=== PATIENT | male | born 1955 | race Caucasian/White ===

== ENCOUNTER → 2017-11-07 09:57 | Day surgery (SDC) | payer MEDICARE, SELFPAY ==
[2017-11-07 11:03] VITALS: BP 119/71; PULSE 67; RESP 18; TEMP 36.6; O2SAT 95
== END ==
PROVIDERS: PCP Physician Assistant; Visit Provider Surgery

== ENCOUNTER → 2018-08-22 13:29 | Outpatient (CLI) | payer MEDICARE, SELFPAY | PROVIDERS: PCP Nurse Practitioner Family; Visit Provider Nurse Practitioner Family | DX: R00.0 Tachycardia, unspecified (principal); R53.83 Other fatigue; I10 Essential (primary) hypertension; Z01.818 Encounter for other preprocedural examination ==

== ENCOUNTER → 2018-08-30 07:06 | Outpatient (CLI) | payer MEDICARE, SELFPAY ==
--- NOTE | 2018-08-30 07:43 | XR_ITS ---
XR chest AP HISTORY: ITS.REASON: preop ORDERING PHYSICIAN: ZEKE Avila PATIENT AGE: 63 years COMPARISON: None available FINDINGS: The cardiomediastinal silhouette and pulmonary vascularity are within normal limits. The lungs are clear without infiltrates, suspicious nodules, or pleural effusions. No acute bony abnormalities. IMPRESSION: Negative chest, no acute finding
--- NOTE | 2018-08-30 07:44 | NM_ITS ---
History and Indications: Coronary artery disease, previous [place], hypertension, hyperlipidemia, tobacco use, preop cardiovascular risk assessment. Procedure: Patient received a 0.4 mg of intravenous Lexiscan, resting heart rate was 62 bpm resting blood pressure 153/83, with Lexiscan maximum heart rate achieved was 84 bpm is less than 85% of the maximum predicted heart rate and a blood pressure was 150/61. With Lexiscan patient complained of shortness of breath. Electrocardiogram: Resting electrocardiogram showed sinus rhythm, inferior and lateral ST-T wave changes consider subendocardial ischemia, with Lexiscan less than 1.[address] segment depression noted from the baseline EKG. The EKG portion of the Lexiscan Myoview is nondiagnostic. Cardiac stress and resting SPECT images: Cardiac stress and resting SPECT images were obtained using technetium 99 Myoview 31.5 mCi stress and 10.9 mCi at rest. Gated SPECT further analysis of segmental wall motion and calculation of the ejection fraction also done. Cardiac stress and rest SPECT images show moderate to large size area of severely reduced tracer activity involving the anterolateral, lateral and inferolateral wall abnormality improves on the resting images suggestive of extensive myocardial scarring with minimal michael-infarct ischemia. Computer derived ejection fraction is 42% with moderate lateral and inferolateral wall hypokinesis, right ventricle is normal size and contractility. Conclusion: 1. The EKG portion of the Lexiscan Myoview is nondiagnostic. 2. Scintigraphic evidence of myocardial scarring involving the anterolateral, lateral and inferolateral wall with minimal michael-infarct ischemia. Computer derived ejection fraction is 42% with multiple segmental wall motion abnormality described above, right ventricle is normal size and contractility. 3. Abnormal Lexiscan Myoview study.
[2018-08-30 09:28] LABS: Alanine Aminotransferase 41 U/L (12-78); Albumin Level 3.6 gm/dL (3.4-5.0); Albumin/Globulin Ratio 1.3 (1.1-1.8); Alkaline Phosphatase 102 U/L (46-116); Anion Gap 10.5 mEq/L (5-15); Aspartate Amino Transferase 24 U/L (15-37); Bilirubin,Total 0.4 mg/dL (0.2-1.0); Blood Urea Nitrogen 19 mg/dL (7-18); Calcium 8.8 mg/dL (8.5-10.1); Carbon Dioxide 29 mmol/L (21.0-32.0); Chloride 107 mmol/L (98-107); Chol/HDL Ratio 2.8 (1-3.5); Cholesterol 96 mg/dL (140-200); Creatinine,Serum 1.07 mg/dL (0.70-1.30); Estimated Glomerular Filt Rate 69 ml/min (>60); GFR (African American) 84 ML/MIN (>60); Globulin 2.7 gm/dl (1.3-3.2); Glucose 79 mg/dL (74-106); HDL Cholesterol 34 mg/dL (27-67); LDL Cholesterol 49 mg/dL (0-130); Potassium 4.5 mmoL/L (3.5-5.1); Sodium 142 mmol/L (136-145); Thyroid Stimulating Hormone 3.43 uIU/ml (0.358-3.740); Total Protein,Serum 6.3 gm/dL (6.4-8.2); Triglycerides 64 mg/dL (30-200); VLDL Cholesterol 13 mg/dL (0-40)
--- NOTE | 2018-08-30 09:41 | HMH.ITSHM ---
Current Home Medications as stated by this patient Juma Hoffman or medical collections representative. []metoprolol lisinopril lipitor asa
== END ==
PROVIDERS: PCP Nurse Practitioner Family; Visit Provider Physician Assistant
DX: Z01.818 Encounter for other preprocedural examination (principal); I25.10 Atherosclerotic heart disease of native coronary artery without angina pectoris; I10 Essential (primary) hypertension
CPT/HCPCS: 36415; 71045; 78452; 80053; 80061; 84443; 93017; A9502; J2785

== ENCOUNTER → 2021-08-10 16:44 | Outpatient (CLI) | payer MEDICARE, SELFPAY ==
--- NOTE | 2021-08-10 16:46 | CA_ITS ---
APPROVED REPORT Left Lower Extremity Venous Study for DVT. Swing Frame Grinder Operator: REYNALDO Indications Lower Extremity Pain: Left Lower Extremity Edema: Left Left leg edema off and on for a little while. Left hip pain that started last night. Denies trauma. Medications Plavix Patient states he used to take Plavix but it was stopped around a year ago. Vein Imaging CFV (L): compressive, spontaneous, phasic, augmentation FEM (L): compressive, spontaneous, phasic, augmentation POP (L): compressive, spontaneous, phasic, augmentation PTV (L): Compressible GSV (L): compressive, spontaneous, phasic, augmentation Peroneals (L):Compressible GAS (L): Compressible Findings No evidence of DVT or superficial thrombophlebitis in the veins scanned of the left lower extremity. Conclusion No evidence of DVT or superficial thrombophlebitis in the veins scanned of the left lower extremity. Electronically signed by : Alok Gonzalez MD 08/16/2021 08:36:45
== END ==
PROVIDERS: PCP Physician Assistant; Visit Provider Nurse Practitioner Family
DX: M79.89 Other specified soft tissue disorders (principal)
CPT/HCPCS: 93971

== ENCOUNTER → 2021-08-25 18:18 | Outpatient (CLI) | payer MEDICARE, SELFPAY ==
[2021-08-25 19:02] LABS: Basophils # 0.1 K/mm3 (0-0.2); Basophils % 0.7 % (0.1-2.0); Eosinophils # 0.4 K/mm3 (0.0-0.4); Eosinophils % 3.4 % (0.1-12.0); Hematocrit 44.4 % (42.0-52.0); Lymphocytes # 2.4 K/mm3 (0.7-4.5); Lymphocytes % 21.8 % (10-50); Mean Corpuscular HGB Conc 33.7 g/dL (31.8-35.4); Mean Corpuscular Hemoglobin 30.6 pg (27.0-31.2); Mean Corpuscular Volume 90.9 fl (80-94); Mean Platelet Volume 9.4 fl (7.4-10.4); Monocytes # 0.9 K/mm3 (0.1-1.0); Monocytes % 7.8 % (1.7-9.3); Neutrophils # 7.3 K/mm3 (1.8-7.8); Neutrophils % 66.3 % (37.0-80.0); Platelet Count 209 K/mm3 (142-424); Red Blood Count 4.89 M/mm3 (4.60-6.20); Red Cell Distribution Width 14.5 % (11.5-17.5)
[2021-08-25 19:06] LABS: Alanine Aminotransferase 24 U/L (12-78); Albumin Level 3.7 g/dl (3.5-5.0); Albumin/Globulin Ratio 1.4 (1.1-1.8); Alkaline Phosphatase 87 U/L (38-126); Aspartate Amino Transferase 33 U/L (17-59); Bilirubin,Total 0.3 mg/dl (0.2-1.3); Blood Urea Nitrogen 16 mg/dl (9-20); Carbon Dioxide 24 mmol/L (22.0-30.0); Chloride 106 mmol/L (98-107); Chol/HDL Ratio 3.6 (1-3.5); Cholesterol 121 mg/dl (140-200); Estimated Glomerular Filt Rate 84 ml/min (>60); GFR (African American) 102 ML/MIN (>60); Globulin 2.7 g/dL (1.3-3.2); Glucose 90 mg/dl (74-100); HDL Cholesterol 34 mg/dl (40-60); Sodium 139 mmol/L (136-145); Total Protein,Serum 6.4 g/dl (6.3-8.2); Triglycerides 86 mg/dl (30-150); VLDL Cholesterol 17 mg/dL (0-40)
[2021-08-25 19:17] LABS: C-Reactive Protein 6.4 mg/L (0-4); Direct LDL Cholesterol 66.89 mg/dL (100-129)
[2021-08-25 19:23] LABS: T4 (Thyroxine) 9.6 ug/dl (5.53-11.0)
[2021-08-25 19:24] LABS: 25-OH Vitamin D, Total 86.4 ng/mL (30-100)
[2021-08-25 19:26] LABS: Erythrocyte Sedimentation Rate 16 mm/hr (0-20)
[2021-08-25 19:37] LABS: Prostate Specific Ag Screen 3.6 ng/ml (0.0-4.0); Thyroid Stimulating Hormone 0.92 uIU/mL (0.465-4.68)
== END ==
PROVIDERS: Visit Provider Physician Assistant
DX: R52 Pain, unspecified (principal); R53.83 Other fatigue; E78.5 Hyperlipidemia, unspecified; H66.92 Otitis media, unspecified, left ear; Z12.5 Encounter for screening for malignant neoplasm of prostate; E55.9 Vitamin D deficiency, unspecified
CPT/HCPCS: 80053; 80061; 82306; 84436; 84443; 85025; 85651; 86140; G0103

== ENCOUNTER → 2021-08-28 12:28 | Outpatient (CLI) | payer MEDICARE, SELFPAY ==
--- NOTE | 2021-08-28 12:29 | XR_ITS ---
PROCEDURE INFORMATION: Exam: XR Left Hip Exam date and time: 08/28/2021 12:29 PM Age: 66 years old Clinical indication: Hip pain; Left hip; Additional info: Left hip pain/ radiates into buttocks -- no injury TECHNIQUE: Imaging protocol: XR Left hip. Views: 2 or 3 views hip with pelvis when performed. COMPARISON: No relevant prior studies available. FINDINGS: Bones/joints: Unremarkable left hip. No acute fracture. Postoperative change in the lumbosacral spine. Soft tissues: Unremarkable. IMPRESSION: No acute findings.
== END ==
PROVIDERS: PCP Physician Assistant; Visit Provider Physician Assistant
DX: M25.552 Pain in left hip (principal)
CPT/HCPCS: 73502

== ENCOUNTER → 2021-09-14 15:39 | Outpatient (CLI) | payer MEDICARE, SELFPAY ==
[2021-09-14 16:08] LABS: Chloride 106 mmol/L (98-107); Sodium 138 mmol/L (136-145)
[2021-09-14 16:11] LABS: Blood Urea Nitrogen 11 mg/dl (9-20); Carbon Dioxide 25 mmol/L (22.0-30.0); Estimated Glomerular Filt Rate 84 ml/min (>60); GFR (African American) 102 ML/MIN (>60)
[2021-09-14 16:12] LABS: Calcium 8.8 mg/dl (8.4-10.2); Glucose 127 mg/dl (74-100)
== END ==
PROVIDERS: Visit Provider Physician Assistant
DX: Z01.818 Encounter for other preprocedural examination (principal)
CPT/HCPCS: 36415; 80048

== ENCOUNTER → 2021-09-16 10:30 | Outpatient (CLI) | payer MEDICARE, SELFPAY ==
--- NOTE | 2021-09-16 10:30 | CT_ITS ---
PROCEDURE INFORMATION: Exam: CTA Angiogram of the Abdominal Aorta and Bilateral Lower Extremities (Run-off) With IV Contrast Exam date and time: 09/16/2021 10:30 AM Age: 66 years old Clinical indication: Other: Edema lle; Additional info: Lle edema TECHNIQUE: Imaging protocol: CT angiogram of the abdominal aorta, pelvis and bilateral lower extremities with IV iodinated contrast. 3D rendering (Not supervised by radiologist): MIP and/or 3D reconstructed images were created by the technologist. Radiation optimization: All CT scans at this facility use at least one of these dose optimization techniques: automated exposure control; mA and/or kV adjustment per patient size (includes targeted exams where dose is matched to clinical indication); or iterative reconstruction. Contrast material: ISOVUE 370; Contrast volume: 120 ml; Contrast route: INTRAVENOUS (IV); COMPARISON: CA VENOUS DOPPLER LE LT 08/10/2021 4:53 PM FINDINGS: Aorta: The vasculature demonstrates diffuse mild atherosclerotic calcification. Celiac trunk and mesenteric arteries: No occlusion or significant stenosis. Renal arteries: No occlusion or significant stenosis. Right iliac arteries: No occlusion or significant stenosis. Right femoral/popliteal arteries: No arterial stenosis or occlusion. Right infrapopliteal arteries: No occlusion or significant stenosis. Left iliac arteries: No occlusion or significant stenosis. Left femoral/popliteal arteries: No occlusion or significant stenosis. Left infrapopliteal arteries: No occlusion or significant stenosis. Bladder: Unremarkable. No mass. Reproductive: The prostate demonstrates mild nonspecific enlargement. The seminal vesicles are normal. The prostate gland demonstrates nonspecific parenchymal calcifications. Intraperitoneal space: Unremarkable. No free air. No significant fluid collection. Lymph nodes: No lymphadenopathy. Bones/joints: No acute fracture. No dislocation. Soft tissues: Bilateral fat filled inguinal hernias. Mild soft tissue edematous changes of the left lower extremity. IMPRESSION: 1. No arterial stenosis or occlusion. 2. Bilateral fat filled inguinal hernias. 3. Mild soft tissue edematous changes of the left lower extremity.
== END ==
PROVIDERS: PCP Physician Assistant; Visit Provider Physician Assistant
DX: I25.10 Atherosclerotic heart disease of native coronary artery without angina pectoris (principal); R09.89 Other specified symptoms and signs involving the circulatory and respiratory systems; R60.0 Localized edema
CPT/HCPCS: 75635; Q9967

== ENCOUNTER → 2021-11-27 14:59 | Outpatient (CLI) | payer OTHER, MEDICARE, SELFPAY | PROVIDERS: PCP Physician Assistant; Visit Provider Emergency Medicine | DX: U07.1 COVID-19 (principal) | CPT/HCPCS: C9803; U0003; U0005 ==

== ENCOUNTER 2022-05-27 14:45 | Emergency (ER) | payer OTHER, MEDICARE, SELFPAY ==
[2022-05-27 15:10] VITALS: BP 126/72; PULSE 66; RESP 19; TEMP 36.7; O2SAT 96; BMI 31.7
--- NOTE | 2022-05-27 15:32 | HMH.EDUTC ---
[facility] [place] Clinical Impression: Bronchitis Disposition: Home, Self-Care Condition on Discharge: Good Instructions: DI for Acute Bronchitis Additional Instructions: Start antibiotic today. Be sure to complete entire prescription even if feeling better Tylenol and ibuprofen as needed for pain or fever Humidifier/vaporizer/hot steamy shower Follow-up with primary care tomorrow. Follow-up immediately in the ER of the [facility] for new or worsening symptoms or no noticeable improvement over the next 48-72 hours. Stop smoking Prescriptions: Amoxicillin [Amoxicillin 500mg Tab] 500 mg PO BID 10 Days #20 tab Transmission Status: Pending to [id number] Referrals: Margarita Goins PA [Primary Care Provider] - Time of Disposition: 15:39 Medical Decision Making - [place] Inquiry Pt receiving controlled substance: No Vital Signs: 05/27/22 15:10 Temperature 98.1 F Temperature Source Oral Pulse Rate [Right Brachial] 66 Respiratory Rate 19 Blood Pressure [Right Arm] 126/72 Blood Pressure Mean [Right Arm] 90 Blood Pressure Source [Right Arm] Automatic Cuff Blood Pressure Position [Right Arm] Sitting 02 Sat by Pulse Oximetry 96 Oxygen Delivery Method Room Air [facility] [place] - General Chief complaint: Urgent Treatment Center Stated complaint: SORE THROAT-COUGHING UP GREEN STUFF Time Seen by Provider: 05/27/22 15:32 Mode of Arrival: Ambulatory Source of Information: Patient Limitations: No Limitations Description of Symptoms (Recalled from Triage Doc. by RN): PATIENT C/O COUGH UP DARK MUCOUS X 3 DAYS HEENT Symptoms (Recalled from RN notes): No Resp Symptoms (Recalled from RN notes): Yes Skin Symptoms (Recalled from RN notes): No MS Symptoms (Recalled from RN notes): No Functional Status (Recalled from RN notes): WNL - History of Present Illness Provider Complaint: 66 yr old male presnts for sore throat and coughing up thick green mucus since last night. - Related Data Home Medications Medication Instructions Recorded Confirmed aspirin 81 mg tablet,delayed 81 mg PO DAILY 08/22/18 08/25/21 release clopidogrel 75 mg tablet PO 90 Days #90 tab 02/03/19 08/25/21 hydrochlorothiazide 12.5 mg capsule PO 90 Days #90 cap 02/03/19 08/25/21 Previous Rx's Medication Instructions Recorded metoprolol succinate 25 mg 25 mg PO DAILY #90 tab 07/31/18 tablet,extended release 24 hr fluticasone propionate 50 1 spray INTRANASAL QDAY 30 Days 02/03/19 mcg/actuation nasal #9.9 g spray,suspension montelukast 10 mg tablet 10 mg PO QPM #30 tab 02/03/19 naproxen 500 mg tablet 500 mg PO BID #30 tab 08/10/21 lisinopril 5 mg tablet See Rx Instructions .ROUTE 01/02/22 .COMPLEX #180 tab atorvastatin 40 mg tablet See Rx Instructions .ROUTE 04/18/22 .COMPLEX #90 tab Amoxicillin [Amoxicillin 500mg Tab] 500 mg PO BID 10 Days #20 tab 05/27/22 Allergies Allergy/AdvReac Type Severity Reaction Status Date / Time azithromycin [AZITHROMYCIN] Allergy Unknown Verified 08/25/21 14:59 diphenhydramine Allergy Unknown Verified 08/25/21 14:59 [From BENADRYL] - Worker's Comp Is this a Worker's Comp case?: No [facility] History - Hepatitis A Screen Attestation statement:: This patient has been screened for Hepatitis A risk factors. I have reviewed the patient's past medical history: Yes Medical History: Reports:: Hyperlipidemia, Hypertension, Myocardial Infarction Denies:: Diabetes Mellitus Type 1, Diabetes Mellitus Type 2, Lung Disease, Seizures Other Medical History: Reports: Arthritis Other Surgeries: Yes: Cardiac Catheterization, Cardiac Surgery, Coronary Stent, Other Amputation: No Fractures: No Comment: Back x3, Cardiac Stents x2 - Social History Smoking Status: Former smoker Tobacco Type: cigarettes # Packs/Day (cigarettes): 1 Alcohol Intake: never Alcohol Intake Frequency:: other Substance Use Type: denies use Occupational Status: disabled Family Hx:: No significant family history ROS [place]
[2022-05-27 15:41] VITALS: BP 126/72; PULSE 66; RESP 19; TEMP 36.7; O2SAT 96
== END 2022-05-27 15:53 | disposition home or self-care (01) ==
PROVIDERS: Emergency Provider Nurse Practitioner Family; PCP Physician Assistant
DX: J40 Bronchitis, not specified as acute or chronic (principal); R09.3 Abnormal sputum; R05.9 Cough, unspecified; E78.5 Hyperlipidemia, unspecified; I10 Essential (primary) hypertension; I25.2 Old myocardial infarction; Z87.891 Personal history of nicotine dependence
CPT/HCPCS: 99212; C9803; G0463; U0003; U0005

== ENCOUNTER 2022-07-29 13:59 | Emergency (ER) | payer OTHER, MEDICARE, SELFPAY ==
--- NOTE | 2022-07-29 14:13 | XR_ITS ---
PROCEDURE INFORMATION: Exam: XR Chest Exam date and time: 07/29/2022 2:08 PM Age: 67 years old Clinical indication: Cough TECHNIQUE: Imaging protocol: Radiologic exam of the chest. Views: 2 views. COMPARISON: CR CXR2 XR chest AP 08/30/2018 9:51 AM FINDINGS: Lungs: Atelectatic changes noted within both lung bases. No focal pneumonia or pneumothorax. Bilateral hyperinflation is present. Pleural spaces: There are no pleural effusions present. Heart/Mediastinum: Unremarkable. No cardiomegaly. Bones/joints: Unremarkable. IMPRESSION: 1. Atelectatic changes noted within both lung bases. 2. No focal pneumonia or pneumothorax. 3. Bilateral hyperinflation is present.
[2022-07-29 14:17] VITALS: BP 156/83; PULSE 82; RESP 16; TEMP 36.8; O2SAT 95; BMI 32.1
--- NOTE | 2022-07-29 14:22 | EXP.UTC ---
Discharge Plan Disposition Patient Disposition: Home, Self-Care Condition: Good Prescriptions Prescriptions: New benzonatate [benzonatate] 100 mg capsule 100 mg PO TIDP PRN (Reason: Cough) Qty: 30 0RF methylprednisolone 4 mg Tablets,Dose Pack 4 mg PO DIRECTED Qty: 21 0RF cefdinir 300 mg capsule 300 mg PO BID Qty: 20 0RF promethazine-DM 6.25-15 mg/5 mL Syrup 5 ml PO Q6H PRN (Reason: Cough) Qty: 240 0RF No Action aspirin [Adult Low Dose Aspirin] 81 mg tablet,delayed release (DR/EC) 81 mg PO DAILY atorvastatin 40 mg tablet See Rx Instructions .ROUTE .COMPLEX Rx Instructions: TAKE 1 TABLET BY MOUTH AT BEDTIME. NEEDS APPT. lisinopril 5 mg tablet See Rx Instructions .ROUTE .COMPLEX Rx Instructions: Take 1 tablet by mouth twice daily metoprolol succinate [Toprol XL] 25 mg tablet extended release 24 hr 25 mg PO DAILY Referrals Follow up/Referrals: Margarita Goins PA [Primary Care Provider] - See instructions Activity Restrictions/Add. Instructions Additional Instructions/Restrictions: Drink plenty of fluids. Take tylenol or ibuprofen for pain or fever. Take the medications as directed. Follow up with your regular doctor. GO TO THE ER FOR ANY WORSENING SYMPTOMS Don't start the oral steroids until tomorrow, since you had the shot here today. The cough medication (promethazine dm) will make you drowsy, so don't drive or operate heavy machinery after taking it. Clinical Impressions Clinical Impression: Bronchitis Instructions Patient Instructions: DI for Acute Bronchitis, Coronavirus Disease 2019, Preventing the Spread of Coronavirus Discharge Instructions Discharge ED Provider: Sean Ortega [facility] [place] General Stated complaint: cough head congestion Mode of Arrival: Ambulatory Source of Information: Patient Limitations: No Limitations Time Seen by Provider: 07/29/22 14:21 Description of Symptoms (Recalled from Triage Doc. by RN): pt comes in with c/o cough and congestion that began last night. HEENT Symptoms (Recalled from RN notes): Yes Resp Symptoms (Recalled from RN notes): Yes Skin Symptoms (Recalled from RN notes): No MS Symptoms (Recalled from RN notes): No Functional Status (Recalled from RN notes): n/a History of Present Illness Provider Complaint: He is here with c/o cough and chest congestion that started yesterday. Related Data Home Medications Medication Instructions Recorded Confirmed aspirin 81 mg tablet,delayed 81 mg PO DAILY Blood thinner 08/22/18 07/29/22 release (Adult Low Dose Aspirin) atorvastatin 40 mg tablet See Rx Instructions .Route 07/29/22 07/29/22 .COMPLEX Cholesterol lisinopril 5 mg tablet See Rx Instructions .Route 07/29/22 07/29/22 .COMPLEX High blood pressure metoprolol succinate 25 mg 25 mg PO DAILY High blood pressure 07/29/22 07/29/22 tablet,extended release 24 hr (Toprol XL) Previous Rx's Medication Instructions Recorded benzonatate 100 mg capsule 100 mg PO TIDP PRN Cough #30 caps 07/29/22 cefdinir 300 mg capsule 300 mg PO BID #20 caps 07/29/22 methylprednisolone 4 mg tablets in 4 mg PO DIRECTED #21 tabs 07/29/22 a dose pack promethazine-DM 6.25 mg-15 mg/5 mL 5 ml PO Q6H PRN Cough #240 mL 07/29/22 oral syrup Allergies Allergy/AdvReac Type Severity Reaction Status Date / Time azithromycin [AZITHROMYCIN] Allergy Unknown Verified 07/29/22 14:20 diphenhydramine Allergy Unknown Verified 07/29/22 14:20 [From BENADRYL] Worker's Comp Is this a Worker's Comp case?: No [facility] Medical History CAD (coronary artery disease) Left otitis media Social History Smoking Status: Former smoker alcohol intake: never substance use type: denies use current occupational status: disabled Travel in the last 8 weeks: None caffeine: No
[2022-07-29 15:38] VITALS: BP 156/83; PULSE 82; RESP 16; TEMP 36.8
== END 2022-07-29 15:38 | disposition home or self-care (01) ==
PROVIDERS: Emergency Provider Nurse Practitioner Family; PCP Physician Assistant
DX: H66.92 Otitis media, unspecified, left ear (principal); R05.9 Cough, unspecified; I25.10 Atherosclerotic heart disease of native coronary artery without angina pectoris; Z20.822 Contact with and (suspected) exposure to COVID-19; Z79.82 Long term (current) use of aspirin; Z79.52 Long term (current) use of systemic steroids; Z88.1 Allergy status to other antibiotic agents; Z88.3 Allergy status to other anti-infective agents; Z88.8 Allergy status to other drugs, medicaments and biological substances; Z87.891 Personal history of nicotine dependence
CPT/HCPCS: 71046; 96372; 99213; C9803; G0463; J0696; U0003; U0005

== ENCOUNTER → 2023-09-03 08:30 | Outpatient (CLI) | payer MEDICARE, SELFPAY ==
[2023-09-03 21:19] LABS: Alanine Aminotransferase 26 U/L (12-78); Albumin/Globulin Ratio 1.6 (1.1-1.8); Alkaline Phosphatase 80 U/L (38-126); Anion Gap 12.5 mEq/L (5-15); Aspartate Amino Transferase 37 U/L (17-59); Bilirubin,Total 0.5 mg/dl (0.2-1.3); Blood Urea Nitrogen 17 mg/dl (9-20); Calcium 9.1 mg/dl (8.4-10.2); Carbon Dioxide 24 mmol/L (22.0-30.0); Chloride 108 mmol/L (98-107); Chol/HDL Ratio 3.5 (1-3.5); Cholesterol 107 mg/dl (140-200); Estimated Glomerular Filt Rate 74 ml/min (>60); GFR (African American) 89 ML/MIN (>60); Globulin 2.5 g/dL (1.3-3.2); Glucose 91 mg/dl (74-100); HDL Cholesterol 31 mg/dl (40-60); Potassium 4.5 mmoL/L (3.5-5.1); Sodium 140 mmol/L (136-145); Total Protein,Serum 6.5 g/dl (6.3-8.2); Triglycerides 63 mg/dl (30-150); VLDL Cholesterol 13 mg/dL (0-40)
[2023-09-03 21:37] LABS: Basophils # 0.1 K/mm3 (0-0.2); Basophils % 0.6 % (0.1-2.0); Eosinophils # 0.3 K/mm3 (0.0-0.4); Eosinophils % 3.4 % (0.1-12.0); Hematocrit 45.2 % (42.0-52.0); Hemoglobin 15.3 g/dL (14.1-18.0); Lymphocytes # 2.2 K/mm3 (0.7-4.5); Lymphocytes % 22.7 % (10-50); Mean Corpuscular HGB Conc 33.9 g/dL (31.8-35.4); Mean Corpuscular Volume 94.4 fl (80-94); Mean Platelet Volume 10.3 fl (7.4-10.4); Monocytes # 0.8 K/mm3 (0.1-1.0); Monocytes % 8.1 % (1.7-9.3); Neutrophils # 6.3 K/mm3 (1.8-7.8); Neutrophils % 65.2 % (37.0-80.0); Platelet Count 229 K/mm3 (142-424); Red Blood Count 4.79 M/mm3 (4.60-6.20); Red Cell Distribution Width 14.3 % (11.5-17.5); White Blood Count 9.6 K/mm3 (4.8-10.8)
[2023-09-03 21:41] LABS: Direct LDL Cholesterol 64.18 mg/dL (100-129)
[2023-09-03 21:47] LABS: Thyroid Stimulating Hormone 1.09 uIU/mL (0.465-4.68)
== END ==
PROVIDERS: PCP Physician Assistant; Visit Provider Physician Assistant
DX: I10 Essential (primary) hypertension (principal); H66.002 Acute suppurative otitis media without spontaneous rupture of ear drum, left ear; Z12.5 Encounter for screening for malignant neoplasm of prostate
CPT/HCPCS: 80053; 80061; 84443; 85025; G0103

== ENCOUNTER 2025-04-13 12:34 | Emergency (ER) | payer MEDICARE, SELFPAY ==
--- OUTSIDE RECORDS SUMMARY | 2025-04-13 12:40 | XMS_ITS | Clinical Summary ---
Author Organization [facility] Address [address] [place] [address] Care Team Providers Care Lead Athlete Name Role Phone Margarita Goins PA-C Primary Care Provider Allergies Active Allergy Reactions Criticality Noted Date Comments Diphenhydramine 08/29/2018 Medications ibuprofen (ADVIL;MOTRIN) 800 MG tablet 07/31/2018 Activ e lisinopril (PRINIVIL;ZESTRI L) 2.5 MG tablet 07/31/2018 Ac tive metoprolol succinate (TOPROL XL) 25 MG extended release tablet 07/31/2018 Acti ve CHANTIX STARTING MONTH PREET 0.5 MG X 11 & 1 MG X 42 tablet 08/13/2018 Active aspirin 81 MG tablet Take 81 mg by mouth daily Active Social History Tobacco Use Types Packs/Day Years Used Date Smoking Tobacco: Light Smoker Cigarettes Smokeless Tobacco: Never Tobacco Cessation:Ready to Q uit: Yes; Counseling Given: Yes Alcohol Use Standard Drinks/Week Comments No 0 (1 standard drink = 0.6 oz pur e alcohol) Sex and Gender Information Value Date Recorded Sex Assigned at Not on file Legal Sex Male 10:05 AM EDT Gender Identity Not on file Sexual Orientation Not on file Last Filed Vital Signs Vital Sign Reading Time Taken Comments Blood Pressure 138/84 08/29/2018 3:31 PM EDT Pulse - - Temperature - - Respiratory Rate - - Oxygen Saturation - - Inhaled Oxygen Concentration - - Weight 118.4 kg (261 lb) 08/29/2018 3:31 PM EDT Height 188 cm (6' 2 ) 08/29/2018 3:31 PM EDT Body Mass Index 33.51 08/29/2018 3:31 PM EDT Plan of Treatment Not on file Insurance [facility] MEDICARE Care Teams Lead Athlete Relationship Specialty Start Date End Date Margarita Goins PA-C [address] [place] [id number] PCP - General Physician Shoulder Boner 08/29/18
--- OUTSIDE RECORDS SUMMARY | 2025-04-13 12:41 | XMS_ITS | Continuity of Care Document ---
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 pectoris (Primary Dx); Essential hypertension; Tobacco abuse 10/04/2024 Refill [facility] [address] [address] Arnold Veronica MD Medication Refill 08/11/2024 Refill [facility] [address] [address] Arnold Veronica MD Medication Refill 05/22/2024 Travel 05/22/2024 11:00 AM EDT Office Visit [facility] [address] Arnold Veronica MD Coronary artery disease involving kaltag coronary artery of 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 pectoris (Primary Dx); Essential hypertension 05/10/2024 Refill [facility] [address] [address] Arnold Veronica MD Medication Refill 04/09/2024 Refill [facility]&[address] [address] Arnold Veronica MD Medication Refill 04/06/2024 Refill [facility]&[place] [address] Arnold Veronica MD Medication Refill 02/21/2024 Travel 02/21/2024 10:00 AM EDT Office Visit [facility]&[address] [address] Arnold Veronica MD Ischemic heart disease (Primary Dx); Coronary artery disease involving kaltag coronary artery of 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 pectoris; Essential hypertension 01/11/2024 Refill [facility] [place] [address] Arnold Veronica MD Medication Refill 11/18/2023 Refill [facility]&[address] [address] Arnold Veronica MD Medication Refill 10/14/2023 Refill [facility]&[place] [id number] Arnold Veronica MD Medication Refill 08/19/2023 Refill [facility]&[address] [address] Arnold Veronica MD Medication Refill 08/02/2023 Travel 08/02/2023 10:45 AM EDT Office Visit [facility]&[address] [address] Arnold Veronica MD Coronary artery disease involving kaltag coronary artery of 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 pectoris (Primary Dx); Essential hypertension 07/29/2023 Travel 07/01/2023 Refill [facility]&[address] [address] Arnold Veronica MD Medication Refill 04/24/2023 Telephone [facility] [address] [address] Arnold Veronica MD Medication Refill (Pt would like Jeremías to take over filling his atorvastatin from PCP because he has problems with Pcp filling.) 02/19/2023 Refill [facility] [place] [address] [place] [address] Arnold Veronica MD Medication Refill 01/25/2023 Travel 01/25/2023 10:30 AM EDT Office Visit [facility] [address] [place] [address] Arnold Veronica MD Ex-smoker for less than 1 year (Primary Dx); Coronary artery disease involving kaltag coronary artery of 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 pectoris; Essential hypertension 01/03/2023 Travel 01/03/2023 11:03 AM EST - 01/03/2023 11:59 PM EST Hospital Encounter [facility] [address] [place] [address] Essential hypertension; Coronary artery disease involving kaltag coronary artery of 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 pectoris Discharge Disposition: Home or Self Care 12/20/2022 Refill [facility] [place] [address] [place] [address] Arnold Veronica MD Medication Refill 11/29/2022 Telephone [facility] [place] [id number] [place] [address] Arnold Veronica MD Lab Orders 11/26/2022 Refill [facility] [address] [place] [address] Lopez Nixon MD Medication Refill 07/12/2022 Travel 07/12/2022 11:30 AM EDT Office Visit [facility] [address] Lopez Nixon MD Essential hypertension (Primary Dx); Ischemic heart disease 02/27/2022 Refill [facility] [address] [place] [address] Lopez Nixon MD Medication Refill (Metoprolol) 01/04/2022 Travel 01/04/2022 11:15 AM EST Office Visit [facility] [address] [address] Lopez Nixon MD Unstable angina pectoris (HCC) (Primary Dx); Essential hypertension; Ischemic heart disease 06/22/2021 Travel 06/22/2021 12:45 PM EDT Office Visit [facility] [address] [address] Lopez Nixon MD Ischemic heart disease (Primary Dx); Hx of myocardial infarction; Essential hypertension 05/01/2021 Refill [facility] [address] [place] [address] Lopez Nixon MD Medication Refill (Metoprolol) 04/03/2021 Refill [facility] [address] [place] [address] Lopez Nixon MD Medication Refill 01/12/2021 Travel 01/12/2021 10:45 AM EST Office Visit [facility] [address] [address] Lopez Nixon MD Coronary artery disease involving kaltag coronary artery of k[place] heart, angina presence unspecified (Primary Dx); Ischemic heart disease; Essential hypertension 12/05/2020 Refill [facility] [address] [place] [address] Lopez Nixon MD Medication Refill 2020 Travel 2020 10:45 AM EDT Office Visit [facility] [address] [address] Lopez Nixon MD Ischemic heart disease (Primary Dx); Hx of myocardial infarction; Coronary artery disease involving kaltag coronary artery of k[place] heart, angina presence unspecified; Essential hypertension 05/05/2020 Travel 01/22/2020 1:25 PM EDT - 01/22/2020 11:59 PM EDT Hospital Encounter [facility] [address] [facility]. [place] [id number] Ischemic heart disease; Hx of myocardial infarction; Essential hypertension Discharge Disposition: Home or Self Care 01/22/2020 Travel 01/12/2020 Travel 01/12/2020 2:45 PM EDT Office Visit [facility] [place] [address] [place] [address] Lopez Nixon MD Ischemic heart disease (Primary Dx); Hx of myocardial infarction; Essential hypertension 11/15/2019 Refill [facility] [address] [place] [address] Lopez Nixon MD Medication Refill (Plavix) 09/25/2019 Refill [facility] [address] [place] [address] Todd Doyle APRN Medication Refill 09/17/2019 11:45 AM EST Office Visit [facility] [place] [address] [place] [address] Lopez Nixon MD Ischemic heart disease (Primary Dx); Coronary artery disease involving kaltag coronary artery of k[place]ag heart, angina presence unspecified; Essential hypertension 06/13/2019 Telephone [facility] [place] [address] [facility] [address] [place] [address] Lopez Nixon MD Other 05/12/2019 Refill [facility] [address] [place] [address] Lopez Nixon MD Medication Refill 03/28/2019 Telephone [facility] [address] [place] [address] Jane Yi RN 02/19/2019 11:45 AM EDT Office Visit [facility] [address] [address] Lopez Nixon MD Non-STEMI (non-ST elevated myocardial infarction) (HCC) (Primary Dx); Essential hypertension 12/30/2018 Telephone [facility] [address] [address] Lopez Nixon MD Other 12/18/2018 11:30 AM EST Office Visit [facility] [address] [address] Lopez Nixon MD Non-STEMI (non-ST elevated myocardial infarction) (HCC) (Primary Dx); Coronary artery disease involving kaltag coronary artery of kaltag heart, angina presence unspecified 11/22/2018 Telephone [facility] [address] [facility] [address] [place] [address] Gisselle Grover, Clerical Staff Cardiac Rehab (Referral) 11/22/2018 Telephone [facility] [address] [place] [address] Lopez Nixon MD Medication Problem (Brilinta sideeffects/ Changed Rx to Plavix) 11/21/2018 Telephone [facility] [address] [place] [address] Lopez Nixon MD Other 11/17/2018 10:01 PM EST - 11/19/2018 12:00 PM EST Hospital [place] [address] Milly Edwards MD Martin, K. 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 [address] Lopez Nixon MD CORONARY ANGIOGRAM / CARDIAC CATHETERIZATION 09/17/2018 5:49 AM EST - 09/19/2018 6:10 PM EST Hospital Encounter [facility] [address] [place] [address] Leo Bennett MD Discharge Disposition: Home or Self Care 09/17/2018 7:30 AM EST - 09/17/2018 12:45 PM EST Surgery [facility] [address] [place] [address] Leo Bennett MD ANTERIOR LUMBAR INTERBODY FUSION POSTERIOR LUMBAR FUSION PEDICLE SCREWS LAMINECTOMY 09/17/2018 7:26 AM EST Anesthesia Event [facility] [address] [place] [address] Kostas Verdugo, Eliane Oliveira, ROBERT 09/10/2018 9:30 AM EST - 09/10/2018 11:59 PM EST Hospital Encounter [facility] [address] [place] [address] Pat, Marcel Pre-op testing (Primary Dx); Vitamin D deficiency ; Preop testing; Back pain, unspecified back location, unspecified back pain laterality, unspecified chronicity Discharge Disposition: Home or Self Care Allergies Active Allergy Reactions Criticality Noted Date Comments Diphenhydramine Hcl Other (See Comments) 2017 Keeps him awake Azithromycin Rash 11/18/2018 Medications multivitamin, stress formula (ALLBEE VIT WITH C & B COMPLEX) Oral Tablet Take 1 Tab by mouth daily. Active aspirin 81 mg Oral Tablet, Delayed Release (E.C.) Take by mouth daily. Active acetaminophen 325 mg Oral Capsule Take 325 mg by mouth as needed. Active nitroGLYCERIN (NITROSTAT) 0.4 mg SL Tablet, Sublingual Place 1 Tablet under the tongue every 5 minutes as needed for Chest pain. 20 Tablet 2 06/22/2021 Active ergocalciferol, vitamin D2, (VITAMIN D2 ORAL) Take by mouth daily. Active metoprolol succinate (TOPROL-XL) 25 mg Oral Tablet Sustained Release 24 hr Take 1 tablet by mouth once daily 90 Tablet 3 08/13/2024 Active atorvastatin (LIPITOR) 40 mg Oral Tablet Take 1 tablet by mouth once daily 90 Tablet 3 10/06/2024 Active lisinopriL (PRINIVIL;ZESTR IL) 20 mg Oral Tablet tablet Take 1 Tablet by mouth daily. 90 Tablet 3 12/04/2024 Active Varenicline (CHANTIX STARTING MONTH BOX) 0.5 mg (11)- 1 mg (42) Oral Tablets, Dose Pack Use as directed. 42 Tablet 1 12/04/2024 Active Active Problems Problem Noted Date Diagnosed Date Essential hypertension 02/19/2019 Chest pain 11/18/2018 Left leg swelling 11/18/2018 Ex-smoker for less than 1 year 11/18/2018 DDD (degenerative disc disease), lumbar 09/18/20 18 Foraminal stenosis of lumbar region 09/18/2018 CAD (coronary artery disease), kaltag coronary a rtery Hx of myocardial infarction Ischemic heart disease Family History Medical History Relation Name Comments bladder cancer Brother Lung Cancer Father Relation Name Status Comments Brother Father Social History Smoking Status as of 04/13/2025 Tobacco Use Types Packs/Day Years Used Date Smoking Tobacco: Never Assessed Sex and Gender Information Value Date Recorded Sex Assigned at Not on file Legal Sex Male 10:17 AM EDT Gender Identity Not on file Sexual Orientation Not on file Last Filed Vital Signs Vital Sign Reading Time Taken Comments Blood Pressure 150/84 12/04/2024 2:14 PM EST Pulse 89 12/04/2024 2:14 PM EST Temperature 37.1 C (98.8 F) 11/19/2018 9:06 AM EST Respiratory Rate 18 11/19/2018 9:06 AM EST Oxygen Saturation 92% 12/04/2024 2:14 PM EST Inhaled Oxygen Concentration - - Weight 112.5 kg (248 lb) 12/04/2024 2:14 PM EST Height 182.9 cm (6') 12/04/2024 2:14 PM EST Body Mass Index 33.63 12/04/2024 2:14 PM EST Plan of Treatment Upcoming Encounters Date Type Department Care Team (Late st Contact Info) Description 05/14/2025 3:00 PM EDT Office Visit [facility] [address] [address] Arnold Veronica MD [address] [place] [address] [place] [address] Medical Devices Implanted Type Area Hand Spring Repairer Device Identifier Shelf Expiration Date Model / Serial / Lot Kit Infuse Extra Small (Bmp) - [id number] Implanted:Qty: 1 on 09/17/2018 by Leo Bennett MD at [facility] N/A: Spine Lumbar [employer]:SOFAMO R DANEK 05/04/2019 [id number] / / [id number] Plate Lumbar [id number] 11mm - [id number] Implanted:Qty: 1 on 09/17/2018 by Leo Bennett MD at [facility] NA: Spine Lumbar [employer] 03/05/2021 [id number] 1-12PC-STR / / [id number] Screw Selfdrilling 5.5x25mm - [id number] Implanted:Qty: 2 on 09/17/2018 by Leo Bennett MD at [facility] N/A: Spine Lumbar [employer] [id number] / / Stent Synergy(Mr) Everolimus-Eluti ng 3.50mm X 32mm - [id number] Implanted:Qty: 1 on 11/18/2018 by Shaq Clark MD at [facility] N/A: RCA [employer]:CARDIAC RHYTHM MGMT [id number] / / [id number] Procedures Procedure Name Priority Date/Time Associated Diagnosis Comments POCT EKG Routine 02/21/2024 10:17 AM EDT Ischemic heart disease LIPID PANEL REFLEX Routine 01/03/2023 11:03 AM EST Coronary artery disease involving kaltag coronary artery of 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 pectoris COMPREHENSIVE METABOLIC PANEL Routine 01/03/2023 11:03 AM EST Essential hypertension CBC Routine 01/03/2023 11:03 AM EST Essential hypertension POCT EKG Routine 01/04/2022 11:46 AM EST Unstable angina pectoris (HCC) POCT EKG Routine 01/12/2021 10:50 AM EST Ischemic heart disease Coronary artery disease involving kaltag coronary artery of kaltag heart, angina presence unspecified CBC WITH DIFF Routine 01/22/2020 1:29 PM EDT Ischemic heart disease Hx of myocardial infarction Essential hypertension LIPID SCREEN Routine 01/22/2020 1:29 PM EDT Ischemic heart disease Hx of myocardial infarction Essential hypertension COMPREHENSIVE METABOLIC PANEL Routine 01/22/2020 1:29 PM EDT Ischemic heart disease Hx of myocardial infarction Essential hypertension IP CONSULT TO CASE MANAGEMENT Routine 11/19/2018 10:49 AM EST ECG AND WAVEFORMS - TELEMETRY Routine 11/19/2018 6:44 AM EST BASIC METABOLIC PANEL Timed 11/19/2018 6:17 AM EST ECG AND WAVEFORMS - TELEMETRY Routine 11/18/2018 6:59 PM EST ECG AND WAVEFORMS - TELEMETRY Routine 11/18/2018 6:05 PM EST CARDIAC PROCEDURE Routine 11/18/2018 3:11 PM EST Chest pain, unspecified type LEFT VENTRICULOGRAM Routine 11/18/2018 3:11 PM EST Chest pain, unspecified type CARDIAC PROCEDURE Routine 11/18/2018 3:11 PM EST Chest pain, unspecified type ACTIVATED CLOTTING TIME LR POC Routine 11/18/2018 2:59 PM EST MISSION WORKER HEMODYNAMIC WAVEFORMS Routine 11/18/2018 2:22 PM EST EC ECHOCARDIOGRAM COMPLETE W DOPPLER AND COLOR FLOW MAPPING Routine 11/18/2018 10:19 AM EST SCANNED EKG 11/18/2018 9:35 AM EST VA US LOWER EXTREMITY VENOUS LEFT STAT 11/18/2018 9:14 AM EST ECG AND WAVEFORMS - TELEMETRY Routine 11/18/2018 7:32 AM EST TROPONIN-T HIGH SENSITIVITY BASELINE W/ REFLEX Timed 11/18/2018 6:33 AM EST PARTIAL THROMBOPLASTIN TIME Routine 11/18/2018 6:33 AM EST PT / INR Routine 11/18/2018 6:33 AM EST LIPID SCREEN Routine 11/18/2018 6:33 AM EST MAGNESIUM LEVEL Add-On 11/18/2018 6:33 AM EST ECG AND WAVEFORMS - TELEMETRY Routine 11/18/2018 1:28 AM EST IP CONSULT TO CARDIOLOGY Routine 11/18/2018 1:07 AM EST Procedure Note - Lopez Nixon MD - 11/18/2018 8:12 AM ESTThis note is in progress. Cardiology Consultation Admission: 11/18/2018 Patient: Juma Hoffman [id number] PCP:No primary care provider on file. Phys Therapist: None Presents with chest pain Cardiology consulted for chest pain PMH includes CAD, DDD, HTN Reports sudden onset of left precordial chest pain occurring yesterday atrest. States he has been active earlier in day without any issues.Describes pain as pressure 2-3/10, non radiating, non exertional, waxedand waned for 30-45 minutes, no associated symptoms. No aggravating oralleviating factors. States pain was not similar to previous angina. Nodyspnea, presyncope, syncope, diaphoresis or nausea. No neck, jaw, backor arm pain. Does report increased edema and pain to left LE for past 4-5days. No orthopnea, PND or weight fluctuations. Reports having stresstest in 09/2018 for cardiac clearance of lumbar surgery. Past Medical History Past Medical History: Diagnosis Date CAD (coronary artery disease), kaltag coronary artery Heartburn Hyperlipidemia Hypertension OH (myocardial infarction) (HCC) 2009 Motion sickness Post-operative nausea and vomiting Tobacco use disorder Medication No current facility-administered medications on file prior to encounter. Current Outpatient Prescriptions on File Prior to Encounter Medication Sig Dispense Refill acetaminophen (TYLENOL) 325 mg Oral Capsule Take by mouth. aspirin 81 mg Oral Tablet, Delayed Release (E.C.) Take by mouth daily. atorvastatin (LIPITOR) 40 mg Oral Tablet Take 40 mg by mouth daily. lisinopril (PRINIVIL;ZESTRIL) 2.5 mg Oral Tablet Take 2.5 mg by mouthdaily. Two tablets daily metoprolol succinate (TOPROL-XL) 25 mg Oral Tablet Sustained Release 24hr Take 25 mg by mouth daily. diazePAM (VALIUM) 5 mg Oral Tablet Take 1 Tab by mouth every 12 hours asneeded. (Patient not taking: Reported on 11/17/2018) 20 Tab 0 docusate sodium (COLACE) 100 mg Oral Capsule Take 1 Cap by mouth 2 timesdaily. (Patient not taking: Reported on 11/17/2018) 60 Cap 0 ergocalciferol (DRISDOL) 50,000 unit Oral Capsule Take 1 Cap by mouthonce a week. (Patient not taking: Reported on 11/17/2018) 4 Cap 2 HYDROcodone-acetaminophen (NORCO) 5-325 mg Oral Tablet Take 1-2 Tabs bymouth every 6 hours as needed for Major Surgery/Trauma (G89.18). (Patientnot taking: Reported on 11/17/2018) 60 Tab 0 multivitamin, stress formula (ALLBEE VIT WITH C & B COMPLEX) Oral TabletTake 1 Tab by mouth daily. Varenicline 0.5 mg (11)- 1 mg (42) Oral Tablets, Dose Pack Take bymouth. Scheduled Meds: aspirin 81 mg Oral Daily atorvastatin 40 mg Oral QPM enoxaparin 40 mg Subcutaneous Daily - LMWH/Xa lisinopril 5 mg Oral BID metoprolol succinate 25 mg Oral Daily Continuous Infusions: Past Surgical History Past Surgical History: Procedure Laterality Date BACK SURGERY 2004, 2007 X2-FUSION BONE GRAFT 09/17/2018 Surgeon: Leo Bennett MD; Location: [facility]; Service: Spine CARDIAC CATHETERIZATION 2 STENTS COLONOSCOPY CORONARY ANGIOPLASTY WITH STENT PLACEMENT LUMBAR FUSION N/A 09/17/2018 L5 S1 Anterior lumbar interbody fusion with iliac bone graft; Surgeon:Leo Bennett MD; Location: [facility]; Service: Spine Allergy Allergies Allergen Reactions Benadryl [Diphenhydramine Hcl] Other (See Comments) Keeps him awake Zithromax [Azithromycin] Rash Family History Family History Problem Relation Age of Onset Lung Cancer Father Other (bladder cancer) Brother Social History Social History Substance Use Topics Smoking status: Former Smoker Packs/day: 1.00 Years: 40.00 Types: Cigarettes Start date: 07/06/1968 Quit date: 09/03/2018 Smokeless tobacco: Never Used Alcohol use No Review of Systems Denies or negative for the following: Constitutional: fever, chills, weight loss, weight gain, falls ENT: headaches, visual changes Cardiovascular: see HPI Pulmonary: cough, sputum production, wheezing, hemoptysis Gastrointestinal: abdominal pain, nausea, vomiting, constipation,diarrhea, hematochezia, melena Genitourinary: change in bladder habits, hematuria Musculoskeletal: weakness, joint complaints Integumentary: rash Endocrine: fatigue Hematologic/Lymphatic: abnormal bruising or excessive bleeding Allergic/Immunologic: hives Objective: BP 112/68 (BP Location: Left arm, Patient Position: Sitting) Pulse 60 Temp 97.9 F (36.6 C) (Oral) Resp 18 Ht 6' (1.829 m) Wt 261 lb6.4 oz (118.6 kg) SpO2 98% BMI 35.45 kg/m General: alert, appears stated age, cooperative and no distress Oropharynx: normal Neck: nontender, no carotid bruit, no JVD, thyroid nonenlarged Lung: clear to auscultation bilaterally Heart: regular rate and rhythm and S1, S2 normal Abdomen: soft, non-tender. Bowel sounds normal. No masses, no organomegaly Extremities: edema trace to 1+ LLE Pulses: 2+ and symmetric bilaterally,brachial, radial, inquinal,popliteal, posterior tibial and dorsalis pedis Skin: Warm and dry Neuro: No obvious focal deficits Diagnostic tests Lab Results Component Value Date WBC 9.5 11/17/2018 HGB 13.5 11/17/2018 HCT 41.4 11/17/2018 PLT 201 11/17/2018 Lab Results Component Value Date CREATININE 1.17 11/17/2018 BUN 14 11/17/2018 NA 142 11/17/2018 K 4.0 11/17/2018 CL 105 11/17/2018 CO2 25 11/17/2018 Lab Results Component Value Date CHOLESTEROL 104 11/18/2018 TRIG 86 11/18/2018 HDL 32 (L) 11/18/2018 LDLCALC 55 11/18/2018 No results found for: ALT, AST No results found for: TSH, PSA Lab Results Component Value Date INR 0.93 11/18/2018 No results found for: CKTOTAL, CKMB, CKMBINDEX, TROPONINI Xr Chest Pa And Lateral Result Date: 11/17/2018 PA AND LATERAL CHEST X-RAY, 11/17/2018 10:48 PM CLINICAL HISTORY: -CHESTDISCOMFORT COMPARISON: None. PROCEDURE COMMENTS: Frontal and lateralviews of the chest. FINDINGS: Mild left basal atelectasis. Remaining chestclear. Heart size normal. Mild left basilar atelectasis Ct Angiogram Pulmonary W Contrast Result Date: 11/18/2018 CT PULMONARY ANGIOGRAM, 11/17/2018 11:43 PM CLINICAL HISTORY: -post op inNovember, left leg swelling, chest pain, elevated d dimer COMPARISON:Chest x-ray from today TECHNIQUE: PE protocol CT angiogram of the chestwith 75 mL Isovue 370 intravenous contrast material with 2-D multiplanarreconstructions and 3-D MIP reconstructions. Automated exposure controlfor dose reduction was used. CTDIvol: .6 - 9.8 mGy. DLP: 381 mGy-cm.FINDINGS: Mild centrilobular emphysema. Minimal lingular atelectasis.Minimal dependent atelectasis along the posterior lungs. Otherwise nosignificant infiltrate is identified. No pleural fluid collection. Nomediastinal, hilar, or axillary adenopathy. No gross evidence ofdissection. There is excellent opacification of the pulmonary arteries. Nopulmonary embolism is identified. Minimal lingular atelectasis. No PE or other acute process. EKG: sinus, rate 78 Telemetry: sinus, rate 60's The most recent cardiovascular imaging studies availabe in [facility] EMR werereviewed at time of consultation Assessment: 1. Chest pain Trop hs-c 14, [address] changes Atypical features 2. Elevated d-dimer CT neg for PE 3. Left leg edema and pain 4. CAD OH with PCI x's 2 '10 at [facility] in [place], [place] 5. Recent back surgery 09/17/2018 6. HTN Controlled Plan: Echo and venous doppler of LLE Will attempt to get report from stress test 09/2018 and prior cath reports Further input to follow per Dr. Hussain Galvez APRN Cardiology: ATTENDING PHYSICIAN ATTESTATION: The patient was seen in collaboration with the nurse practioner. I have reviewed all the pertinent history, laboratory and radiologystudies. I have taken a history and performed a physical examination of thispatient. I agree with the history, physical, assessment and plan as outlinedabove. Patent seen and examined Chest exam: negative CVS NO JVD S1 S2 normal No murmurs or gallops As above. Episode of chest discomfort lasting roughly 2 hours somewhatsimilar to pain that he had with his previous OH. Echo does show mildlyreduced LV systolic function with LV filling pressure probably normal.His third troponin is elevated and is suspicious for non-STEMI. Ischeduled him for a coronary angiogram later this afternoon.The patientis agreeable to proceeding. Thanks for consult TROPONIN-T HIGH SENSITIVITY BASELINE W/ REFLEX Timed 11/18/2018 12:[address] ANGIOGRAM PULMONARY W CONTRAST STAT 11/17/2018 11:43 PM EST XR CHEST PA AND LATERAL THALIA 11/17/2018 10:48 PM EST TROPONIN-T HIGH SENSITIVITY BASELINE W/ REFLEX STAT 11/17/2018 10:25 PM EST D-DIMER STAT 11/17/2018 10:25 PM EST NT PROBNP STAT 11/17/2018 10:25 PM EST BASIC METABOLIC PANEL STAT 11/17/2018 10:25 PM EST CBC WITH DIFF STAT 11/17/2018 10:25 PM EST EK EKG 12 LEAD STAT 11/17/2018 9:46 PM EST SCANNED RHYTHM STRIPS 09/21/2018 4:46 PM EST FL < 1 HOUR THALIA 09/17/2018 9:54 AM EST XR LUMBAR SPINE AP AND LATERAL THALIA 09/17/2018 9:45 AM EST INTRAOP AIRWAY PLACEMENT Routine 09/17/2018 7:45 AM EST ILIAC CREST BONE GRAFT 09/17/2018 7:28 AM EST Neurogenic claudication Special Needs Choice cage BMP lg fragment titanium screw w/washer medtronic pedicle screws o-arm & stealth/removal kitFluoro/o-arm & stealth/ SLIDER BED/ NAYELI WITH FANNIE / ASSISTDr Zenni reps notified-DT ANTERIOR LUMBAR INTERBODY FUSION POSTERIOR LUMBAR FUSION PEDICLE SCREWS LAMINECTOMY 09/17/2018 7:28 AM EST Neurogenic claudication Special Needs Choice cage BMP lg fragment titanium screw w/washer medtronic pedicle screws o-arm & stealth/removal kitFluoro/o-arm & stealth/ SLIDER BED/ NAYELI WITH FANNIE / ASSISTDr Zenni reps notified-DT CBC Routine 09/10/2018 10:37 AM EST Pre-op testing Back pain, unspecified back location, unspecified back pain laterality, unspecified chronicity BB HISTORY CHECK Routine 09/10/2018 10:02 AM EST Pre-op testing SURGERY DATE Routine 09/10/2018 10:02 AM EST Pre-op testing ANTIBODY SCREEN IGG Routine 09/10/2018 10:02 AM EST Pre-op testing ABORH Routine 09/10/2018 10:02 AM EST Pre-op testing PREADMISSION TYPE AND SCREEN Routine 09/10/2018 10:02 AM EST Pre-op testing VITAMIN D 25 HYDROXY Routine 09/10/2018 10:02 AM EST Vitamin D deficiency Pre-op testing STAPHYLOCOCCUS AUREUS SCREEN Routine 09/10/2018 10:02 AM EST Results * (ABNORMAL) POCT EKG (02/21/2024 10:17 AM EDT) Only the most recent of3 resultswithin the time period is included. 02/21/2024 10:1 7 AM EDT Impressions SEP OFFICE - 02/21/2024 10:17 AM EDT Normal sinus rhythm, LAFB, IVCD, nonspecific t-wave abnormality. us Arnold Veronica MD POINT OF CARE CARDIOLOGY Final R esult Performing Organization Address City/[facility]/ZIP Co de Phone Number SEP OFFICE * (ABNORMAL) LIPID PANEL REFLEX (01/03/2023 11:03 AM EST) [facility] Cholesterol 106 <200 mg/dL 01/03/2023 3:35 PM EST [facility] [place] Comment: < 200 Desirable 200 - 239 Borderline High >= 240 High Triglyceride 84 <150 mg/dL 01/03/2023 3:35 PM EST [facility] [place] Comment: < 150 Normal 150 - 199 Borderline High 200 - 499 High >= 500 Very High HDL 35(L) >=40 mg/dL 01/03/2023 3:35 PM EST [facility] [place] Comment: > 60 Optimal 40 - 60 Acceptable < 40 Low LDL Calculated 54 <100 mg/dL 01/03/2023 3:35 PM EST [facility] [place] Non-HDL-C Calculated 71 <=129 mg/dL 01/03/2023 3:35 PM EST [facility] [place] Comment: <130 Desirable 130-159 Above Desirable 160-189 Borderline High 190-219 High >= 220 Very High Fasting Specimen? Yes None 023 3:35 PM EST [facility] Blood VENOUS BLOOD / Unknown Venipuncture / Unknown 01/03/2023 11:03 AM EST 01/03/2023 11:03 AM EST us Arnold Veronica MD CHEMISTRY ORDERABLES Final Resul t Performing Organization Address City/[facility]/ZIP Co de Phone Number [facility] [place] [address] [facility], [address] [place] [phone] [facility] [address] [place] [phone] * CBC (01/03/2023 11:03 AM EST) Only the most recent of2 resultswithin the time period is included. WBC 10.1 3.7 - 10.3 x10(3)/mcL 01/03/2023 3:32 PM EST [facility] RBC 4.85 4.60 - 6.10 x10(6)/mcL 01/03/2023 3:32 PM EST [facility] Hgb 14.6 13.7 - 17.5 g/dL 01/03/2023 3:32 PM EST [facility] Hct 44.6 40.0 - 51.0 % 01/03/2023 3:32 PM EST [facility] MCV 92.0 80.0 - 100.0 fL 01/03/2023 3:32 PM EST [facility] MCH 30.1 26.0 - 34.0 pg 01/03/2023 3:32 PM EST [facility] MCHC 32.7 30.7 - 35.5 g/dL 01/03/2023 3:32 PM EST [facility] RDW 14.4 <=14.9 % 01/03/2023 3:32 PM EST [facility] Platelet 236 155 - 369 x10(3)/mcL 01/03/2023 3:32 PM EST [facility] MPV 11.2 8.8 - 12.5 fL 01/03/2023 3:32 PM EST [facility] Blood VENOUS BLOOD / Unknown Venipuncture / Unknown 01/03/2023 11:03 AM EST 01/03/2023 11:03 AM EST us Arnold Veronica MD HEMATOLOGY ORDERABLES Final Resu lt [facility] [address] [facility] , [address] [place] [phone] * (ABNORMAL) COMPREHENSIVE METABOLIC PANEL (01/03/2023 11:03 AM EST) Only the most recent of2 resultswithin the time period is included. Sodium 142 136 - 145 mmol/L 01/03/2023 3:36 PM EST [facility] Potassium 4.9 3.5 - 5.0 mmol/L 01/03/2023 3:36 PM EST [facility] Chloride 106 98 - 107 mmol/L 01/03/2023 3:36 PM EST [facility] Total CO2 30(H) 22 - 29 mmol/L 01/03/2023 3:36 PM EST [facility] Anion Gap 6(L) 7 - 16 mmol/L 01/03/2023 3:36 PM EST [facility] Calcium 9.6 8.8 - 10.4 mg/dL 01/03/2023 3:36 PM EST [facility] Glucose Lvl 98 82 - 100 mg/dL 01/03/2023 3:36 PM EST [facility] BUN 14 8 - 23 mg/dL 01/03/2023 3:36 PM EST [facility] Creatinine 1.23 0.67 - 1.30 mg/dL 01/03/2023 3:36 PM EST [facility] Albumin 4.2 3.2 - 4.6 gm/dL 01/03/2023 3:36 PM EST [facility] Total Protein 6.7 6.4 - 8.3 gm/dL 01/03/2023 3:36 PM EST [facility] Bili Total 0.5 0.1 - 1.4 mg/dL 01/03/2023 3:36 PM EST [facility] ALT 21 <=41 U/L 01/03/2023 3:36 PM EST [facility] AST 27 <=40 U/L 01/03/2023 3:36 PM EST [facility] Alk Phos 89 40 - 129 U/L 01/03/2023 3:36 PM EST [facility] eGFR (CKD-EPIcr 2020) 64 >=60 mL/min/1.7 3 m2 01/03/2023 3:36 PM EST [facility] Comment:Estimated GFR was ca lculated using the CKD-EPIcr (2020) equation refit without race. The equation is recommended by the National Kidney Foundation - [place] [employer] of Nephrology Task Force. Blood VENOUS BLOOD / Unknown Venipuncture / Unknown 01/03/2023 11:03 AM EST 01/03/2023 11:03 AM EST us Arnold Veronica MD CHEMISTRY ORDERABLES Final Resul t [facility] [address] [facility], [place] [address] [facility] 1 [place] [address] * (ABNORMAL) CBC WITH DIFF (01/22/2020 1:29 PM EDT) Only the most recent of2 resultswithin the time period is included. WBC 14.3(H) 3.7 - 10.3 x10(3)/mcL 01/22/2020 7:11 PM EDT [facility] RBC 4.87 4.60 - 6.10 x10(6)/mcL 01/22/2020 7:11 PM EDT [facility] Hgb 14.3 13.7 - 17.5 g/dL 01/22/2020 7:11 PM EDT [facility] Hct 44.8 40.0 - 51.0 % 01/22/2020 7:11 PM EDT [facility] MCV 92.0 80.0 - 100.0 fL 01/22/2020 7:11 PM EDT [facility] MCH 29.4 26.0 - 34.0 pg 01/22/2020 7:11 PM EDT [facility] MCHC 31.9 30.7 - 35.5 g/dL 01/22/2020 7:11 PM EDT [facility] RDW 14.6 <=14.9 % 01/22/2020 7:11 PM EDT [facility] Platelet 237 155 - 369 x10(3)/mcL 01/22/2020 7:11 PM EDT [facility] MPV 10.8 8.8 - 12.5 fL 01/22/2020 7:11 PM EDT [facility] Neut Percent 73.7 % 01/22/2020 7:11 PM EDT [facility] Comment:Neutrophils equals s egs plus bands Imm Gran% 0.6 % 01/22/2020 7:11 PM EDT [facility] Comment:Automated count of m etamyelocytes, myelocytes and promyelocytes. Lymph Percent 15.7 % 01/22/2020 7:11 PM EDT [facility] Sunflower Percent 6.7 % 01/22/2020 7:11 PM EDT [facility] Eos Percent 2.4 % 01/22/2020 7:11 PM EDT [facility] Baso Percent 0.9 % 01/22/2020 7:11 PM EDT [facility] Neut # 10.6(H) 1.6 - 6.1 x10(3)/[facility] 01/22/2020 7:11 PM EDT [facility] Comment:Neutrophils equals s egs plus bands IMMGRAN# 0.1 0.0 - 0.1 x10(3)/mcL 01/22/2020 7:11 PM EDT [facility] Comment:Automated count of m etamyelocytes, myelocytes and promyelocytes. An absolute IG <0.1 is reported as 0.0. Lymph # 2.3 1.2 - 3.9 x10(3)/mcL 01/22/2020 7:11 PM EDT [facility] Sunflower # 1.0(H) 0.3 - 0.9 x10(3)/mcL 01/22/2020 7:11 PM EDT [facility] Eos# 0.3 0.0 - 0.5 x10(3)/[facility] 01/22/2020 7:11 PM EDT [facility] Baso # 0.1 0.0 - 0.1 x10(3)/[facility] 01/22/2020 7:11 PM EDT [facility] Blood Venipuncture / Unknown 01/22/2020 1:29 PM EDT 01/22/2020 1:29 PM EDT us Lopez Nixon MD HEMATOLOGY ORDERABLES Final Resu lt [facility] [address] [facility] , [place] [address] * (ABNORMAL) LIPID SCREEN (01/22/2020 1:29 PM EDT) Only the most recent of2 resultswithin the time period is included. Cholesterol 97 <200 mg/dL 01/22/2020 7:25 PM EDT [facility] Comment: < 200 Desirable 200 - 239 Borderline High >= 240 High Triglyceride 104 <150 mg/dL 01/22/2020 7:25 PM EDT [facility] Comment: < 150 Normal 150 - 199 Borderline High 200 - 499 High >= 500 Very High HDL 30(L) >=40 mg/dL 01/22/2020 7:25 PM EDT [facility] Comment: > 60 Optimal 40 - 60 Acceptable < 40 Low LDL Calculated 46 <100 mg/dL 01/22/2020 7:25 PM EDT [facility] Comment: < 100 Optimal 100 - 129 Near or above optimal 130 - 159 Borderline High 160 - 189 High >= 190 Very High Non-HDL-C Calculated 67 <=129 mg/dL 01/22/2020 7:25 PM EDT [facility] Comment: <130 Desirable 130-159 Above Desirable 160-189 Borderline High 190-219 High >= 220 Very High Fasting Specimen? Yes None 020 7:25 PM EDT [facility] Blood Venipuncture / Unknown 01/22/2020 1:29 PM EDT 01/22/2020 1:29 PM EDT us Lopez Nixon MD CHEMISTRY ORDERABLES Final Resul t Performing Organization Address City/[facility] Co de Phone Number [facility] [employer] [place] [address] [facility] , [place] [address] * ECG AND WAVEFORMS - TELEMETRY (11/19/2018 6:44 AM EST) Only the most recent of5 resultswithin the time period is included. Pathologist [facility] ECG INTERPRET NSR [facility] DATA TECHNICAL LEAD APPROVED Yes [facility] 11/19/2018 6:44 AM EST Narrative [facility] - 11/19/2018 6:52 AM EST [place] 0.17 QRS 0.09 QT 0.34 See Clinical Report link for waveform capture us Unknown Provider POINT OF CARE CARDIOLOGY Final Result Performing Organization Address City/[facility]/ZIP Co de Phone Number [place] [address] * (ABNORMAL) BASIC METABOLIC PANEL (11/19/2018 6:17 AM EST) Only the most recent of2 resultswithin the time period is included. Sodium 143 136 - 145 mmol/L 11/19/2018 6:58 AM EST [facility] Potassium 4.4 3.5 - 5.0 mmol/L 11/19/2018 6:58 AM EST [facility] Chloride 109(H) 98 - 107 mmol/L 11/19/2018 6:58 AM EST [facility] Total CO2 21(L) 22 - 29 mmol/L 11/19/2018 6:58 AM EST [facility] Anion Gap 13 7 - 16 mmol/L 11/19/2018 6:58 AM EST [facility] Calcium 8.8 8.8 - 10.2 mg/dL 11/19/2018 6:58 AM EST [facility] Glucose Lvl 100 82 - 100 mg/dL 11/19/2018 6:58 AM EST [facility] BUN 14 8 - 23 mg/dL 11/19/2018 6:58 AM EST [facility] Creatinine 1.17 0.67 - 1.30 mg/dL 11/19/2018 6:58 AM EST [facility] GFR Afr Am 75 >=60 mL/min/1.7 3 m2 11/19/2018 6:58 AM EST [facility] GFR Non Afr Am 65 >=60 mL/min/1.7 3 m2 11/19/2018 6:58 AM EST [facility] Comment: This estimated GFR was calculated using CKD-EPI equation which is modified based on ethnicity for Non Americans and Americans. Both results are reported since it is not always possible to determine the patient's ethnicity. This equation should only be used for individuals 18 and older. It has not been validated for use with the elderly (>70 years), women, or in some racial or ethnic subgroups, such as Hispanics. The equation will be less accurate in people with differences in nutritional status or muscle mass. Blood VENOUS BLOOD / Unknown Venipuncture / Unknown 11/19/2018 6:17 AM EST 11/19/2018 6:24 AM EST us Shaq Clark MD CHEMISTRY ORDERABLES Final Resu lt Performing Organization Address [facility] Co de Phone Number [facility] [employer] [place] [address] [facility], [place] [address] * CORONARY ANGIOGRAM (COR/LHC/LV GRAM, CARDIAC CATHETERIZATION) (11/18/2018 3:11 PM EST) Only the most recent of2 resultswithin the time period is included. Narrative [facility] - 11/18/2018 3:16 PM EST Mid RCA lesion 90% stenosed. Moderate diffuse three vessel ds High grade ds involving Mid RCA using 3.5 x 32 Synergy AUBRIE Coronary Findings Diagnostic Dominance: Right Left Main: The vessel was not injected. Left Anterior Descending: The vessel was not injected. Left Circumflex: The vessel was not injected. Right Coronary Artery: The vessel was visualized by angiography and is large. Mid RCA lesion 90% stenosed. The lesion is type B2, segmental, calcified and eccentric. Intervention Mid RCA lesion: PCI: Lesion length: 28 mm. The pre-interventional distal flow is decreased (ENRIKE 2). Pre-stent angioplasty was performed using a CATHETER DILATATION RX TREK 2.50MM X 20MM supply. A STENT SYNERGY(MR) EVEROLIMUS-ELUTING 3.50MM X 32MM drug eluting stent was successfully placed. Maximum pressure: 13 josue. The strut is apposed. The post-interventional distal flow is normal (ENRIKE 3). The intervention was successful. No complications occurred at this lesion. There is a 0% residual stenosis post intervention. us Lopez Nixon MD CARDIAC CATH ORDERABLES Final Re sult [facility] * (ABNORMAL) ACTIVATED CLOTTING TIME LR POC (11/18/2018 2:59 PM EST) ACT-LR 298(H) 89 - 169 second(s) 11/18/2018 3:07 PM EST [facility] Blood BLOOD SPECIMEN / Unknown 11/18/2018 2:59 PM EST 11/18/2018 3:07 PM EST Amanda Doyle MD POINT OF CARE TEST ORDERABLE S Final Result Performing Organization Address City/[facility]/ZIP Co de Phone Number [facility] [address] [place] [address] * MISSION WORKER HEMODYNAMIC WAVEFORMS (11/18/2018 2:22 PM EST) 11/18/2018 2:22 PM EST Lopez Nixon MD CARDIAC CATH ORDERABLES Final Re sult Performing Organization Address [facility]/ZIP Co de Phone Number [facility] [address] [place] [address] * EC ECHOCARDIOGRAM COMPLETE W DOPPLER AND COLOR FLOW MAPPING (11/18/2018 10:19 AM EST) Ejection Fraction 50-55 % PYRAMIS Anatomical Region Laterality Modality Electrocardiogra phy 11/18/2018 9:30 AM EST Impressions 11/18/2018 11:34 AM EST CONCLUSIONS Normal global left ventricular systolic function. Mild right ventricular dilatation. Mild left atrial dilatation. Normal size aortic root and proximal ascending aorta. No hemodynamically significant valve ds Narrative Procedure Note Shaq Clark MD - 11/18/2018 IMPRESSION CONCLUSIONS Normal global left ventricular systolic function. Mild right ventricular dilatation. Mild left atrial dilatation. Normal size aortic root and proximal ascending aorta. No hemodynamically significant valve ds us Bailey Galvez APRN IMG ECHO ORDERABLES Final Result * SCANNED EKG (11/18/2018 9:35 AM EST) Anatomical Region Laterality Modality Other 11/18/2018 9:35 AM EST Unknown Unknown IMG ECG ORDERABLES Final Result * VA US LOWER EXTREMITY VENOUS LEFT (11/18/2018 9:14 AM EST) Anatomical Region Laterality Modality Vascular, Thigh, Leg Vascular Im aging 11/18/2018 8:49 AM EST Impressions 11/19/2018 8:35 AM EST CONCLUSIONS No evidence of deep vein thrombosis identified in the left lower extremity. No evidence of superficial vein thrombosis identified in the left lower extremity. No evidence of thrombosis is noted in the contralateral right common femoral vein. Charly Romero MD Narrative Procedure Note Charly Romero MD - 11/19/2018 IMPRESSION CONCLUSIONS No evidence of deep vein thrombosis identified in the left lowerextremity. No evidence of superficial vein thrombosis identified in the left lowerextremity. No evidence of thrombosis is noted in the contralateral right commonfemoral vein. Charly Romero MD us Murtaza Wilder MD IMG VASCULAR ORDERABLES Isidra l Result * (ABNORMAL) TROPONIN-T HIGH SENSITIVITY (11/18/2018 6:33 AM EST) Only the most recent of3 resultswithin the time period is included. lp-hCyskiyvv-H 33(H) <22 ng/L 11/18/2018 9:00 AM EST [facility] Comment: See the website below for rule out [place] care pathway, conditions other than AMI that can cause elevated hs cTnT, and comparison of values from the 4th and 5th generation [employer] tests. https://[email or web address]/topic/clinical-answers/[email or web address]/[email or web address] Blood VENOUS BLOOD / Unknown Venipuncture / Unknown 11/18/2018 6:33 AM EST 11/18/2018 6:47 AM EST Narrative [facility] - 11/18/2018 9:00 AM EST Ingestion of robina doses of biotin (>5 mg/day) taken within 8 hours of drawing blood sample can interfere with this immunoassay test. us Milly Edwards MD CHEMISTRY ORDERA BLES Final Result [facility] [address] [place] [address] * PARTIAL THROMBOPLASTIN TIME (11/18/2018 6:33 AM EST) PTT 27.6 26.0 - 36.4 second(s) 11/18/2018 7:13 AM EST [facility] Comment: Therapeutic range for unfractionated heparin: 53.0 - 94.4 seconds Therapeutic range for direct thrombin inhibitors: Argatroban is 1.5 to 3 times the aPTT baseline. Lepirudin is 1.5 to 2 times the aPTT baseline. The aPTT should not exceed 100 seconds. The dosage of Argatroban should be decreased in patients with hepatic impairment. The dosage of Lepirudin should be decreased in renal insufficiency. Blood VENOUS BLOOD / Unknown Venipuncture / Unknown 11/18/2018 6:33 AM EST 11/18/2018 6:47 AM EST Murtaza Wilder MD HEMATOLOGY ORDERABLES Final Result Performing Organization Address [facility] Phone Number [facility] [address] [place] [address] , [place] [address] * PT / INR (11/18/2018 6:33 AM EST) Pathologist [facility] PT 10.5 9.7 - 12.5 second(s) 11/18/2018 7:13 AM EST [facility] INR 0.93 0.86 - 1.10 no units 11/18/2018 7:13 AM EST [facility] Comment: Level of Therapy Indications Target INR Range Standard Dose Treatment and prophylaxis of venous 2.0 - 3.0 thrombosis, pulmonary embolism High Dose High risk patients with mechanical 2.5 - 3.5 heart valves Blood VENOUS BLOOD / Unknown Venipuncture / Unknown 11/18/2018 6:33 AM EST 11/18/2018 6:47 AM EST Murtaza Wilder MD HEMATOLOGY ORDERABLES Final Result Performing Organization Address [facility] Phone Number [facility] [address] [place] [address] , [place] [address] * MAGNESIUM LEVEL (11/18/2018 6:33 AM EST) Pathologist [facility] Magnesium 2.0 1.6 - 2.4 mg/dL 11/18/2018 8:00 AM EST [facility] Blood VENOUS BLOOD / Unknown Venipuncture / Unknown 11/18/2018 6:33 AM EST 11/18/2018 6:47 AM EST us Murtaza Wilder MD CHEMISTRY ORDERABLES Final R esult [facility] [address] [facility] , [place] [address] * CT ANGIOGRAM PULMONARY W CONTRAST (11/17/2018 11:43 PM EST) Anatomical Region Laterality Modality Chest Computed Tomogra phy 11/17/2018 11:4 3 PM EST Impressions 11/18/2018 12:03 AM EST Minimal lingular atelectasis. No PE or other acute process. Narrative 11/18/2018 12:[address] PULMONARY ANGIOGRAM, 11/17/2018 11:43 PM CLINICAL HISTORY: -post op in September, left leg swelling, chest pain, elevated d dimer COMPARISON: Chest x-ray from today TECHNIQUE: PE protocol CT angiogram of the chest with 75 mL Isovue 370 intravenous contrast material with 2-D multiplanar reconstructions and 3-D MIP reconstructions. Automated exposure control for dose reduction was used. CTDIvol: .6 - 9.8 mGy. DLP: 381 mGy-cm. FINDINGS: Mild centrilobular emphysema. Minimal lingular atelectasis. Minimal dependent atelectasis along the posterior lungs. Otherwise no significant infiltrate is identified. No pleural fluid collection. No mediastinal, hilar, or axillary adenopathy. No gross evidence of dissection. There is excellent opacification of the pulmonary arteries. No pulmonary embolism is identified. Procedure Note Savage Hightower MD - 11/18/2018 CT PULMONARY ANGIOGRAM, 11/17/2018 11:43 PM CLINICAL HISTORY: -post op in September, left leg swelling, chest pain,elevated d dimer COMPARISON: Chest x-ray from today TECHNIQUE: PE protocol CT angiogram of the chest with 75 mL Isovue 370 intravenous contrast material with 2-D multiplanar reconstructions and 3-DMIP reconstructions. Automated exposure control for dose reduction wasused. CTDIvol: .6 - 9.8 mGy. DLP: 381 mGy-cm. FINDINGS: Mild centrilobular emphysema. Minimal lingular atelectasis. Minimaldependent atelectasis along the posterior lungs. Otherwise no significant infiltrateis identified. No pleural fluid collection. No mediastinal, hilar, oraxillary adenopathy. No gross evidence of dissection. There is excellent opacification of the pulmonary arteries. No pulmonary embolism is identified. IMPRESSION: Minimal lingular atelectasis. No PE or other acute process. Milly Edwards MD [facility] CT ORDERABLE S Final Result * XR CHEST PA AND LATERAL (11/17/2018 10:48 PM EST) Anatomical Region Laterality Modality Chest Radiographic Na ging 11/17/2018 10:4 8 PM EST Impressions 11/17/2018 10:59 PM EST Mild left basilar atelectasis Narrative 11/17/2018 10:59 PM EST PA AND LATERAL CHEST X-RAY, 11/17/2018 10:48 PM CLINICAL HISTORY: -CHEST DISCOMFORT COMPARISON: None. PROCEDURE COMMENTS: Frontal and lateral views of the chest. FINDINGS: Mild left basal atelectasis. Remaining chest clear. Heart size normal. Procedure Note Savage Hightower MD - 11/17/2018 PA AND LATERAL CHEST X-RAY, 11/17/2018 10:48 PM CLINICAL HISTORY: -CHEST DISCOMFORT COMPARISON: None. PROCEDURE COMMENTS: Frontal and lateral views of the chest. FINDINGS: Mild left basal atelectasis. Remaining chest clear. Heart size normal. IMPRESSION: Mild left basilar atelectasis Milly Edwards MD [facility] DIAGNOSTIC I MAGING ORDERABLES Final Result * (ABNORMAL) D-DIMER (11/17/2018 10:25 PM EST) D-Dimer 278(H) <=230 ng/mL D-DU 11/17/2018 10:47 PM EST [facility] Comment: This test has been clinically validated by the forestry adviser and approved by the FDA for exclusion of pulmonary embolism (PE) or deep vein thrombosis (DVT) in patients with a low clinical risk assessment. The cutoff for exclusion of PE and DVT is < 230 ng/mL D-Dimer Units. Increased levels of D-dimer are associated with PE, DVT, disseminated intravascular coagulation, malignancies, inflammation, sepsis, surgery, trauma, , and advanced patient age. Blood VENOUS BLOOD / Unknown Venipuncture / Unknown 11/17/2018 10:25 PM EST 11/17/2018 10:34 PM EST Milly Edwards MD HEMATOLOGY ORDER EMILIA Final Result [facility] [address] [facility], [place] [address] * NT PROBNP (11/17/2018 10:25 PM EST) NT Pro-BNP 217 <=319 pg/mL 11/17/2018 11:03 PM EST [facility] Blood VENOUS BLOOD / Unknown Venipuncture / Unknown 11/17/2018 10:25 PM EST 11/17/2018 10:33 PM EST Narrative [facility] - 11/17/2018 11:03 PM EST An NT pro-BNP level less than 300 pg/mL in any patient, regardless of age, effectively rules out acute CHF with a 99% negative predictive value. Milly Edwards MD CHEMISTRY ORDERA BLES Final Result Performing Organization Address City/[facility]/ZIP Co de Phone Number [facility] [address] [place] [address] * EK EKG 12 LEAD (11/17/2018 9:46 PM EST) Anatomical Region Laterality Modality Electrocardiogra phy 11/17/2018 9:49 PM EST Impressions 11/17/2018 10:05 PM EST Stationary ECG Study [facility] Interpretive Statements SINUS RHYTHM MARKED LEFT AXIS DEVIATION PATTERN CONSISTENT WITH PULMONARY DISEASE MODERATE INTRAVENTRICULAR CONDUCTION DELAY Electronically Signed On 11-17-2018 22:05:03 EST by Daniel Allen MD Narrative Procedure Note Daniel Allen MD - 11/17/2018 IMPRESSION Stationary ECG Study [facility] Interpretive Statements SINUS RHYTHM MARKED LEFT AXIS DEVIATION PATTERN CONSISTENT WITH PULMONARY DISEASE MODERATE INTRAVENTRICULAR CONDUCTION DELAY Electronically Signed On 11-17-2018 22:05:03 EST by Daniel Allen MD us Milly Edwards MD IMG ECG ORDERABL ES Final Result * SCANNED RHYTHM STRIPS (09/21/2018 4:46 PM EST) Anatomical Region Laterality Modality Other 09/21/2018 4:46 PM EST us Unknown Unknown IMG ECG ORDERABLES Final Result * FL < 1 HOUR (09/17/2018 9:54 AM EST) Narrative PACS - 09/17/2018 9:56 AM EST Fluoroscopy was performed. The radiologist was not in attendance. No permanent images were obtained. This dictation is being made for record keeping purposes. us Leo Bennett MD IMG FLUOROSCOPY ORDERABLES F inal Result PACS * XR LUMBAR SPINE AP AND LATERAL (09/17/2018 9:45 AM EST) Anatomical Region Laterality Modality L-spine Radio Fluoroscop y 09/17/2018 9:45 AM EST Impressions 09/17/2018 12:20 PM EST Intraoperative imaging provided. Fluoroscopy time 0.87 minutes. 8 images obtained during anterior lumbar interbody fusion L5-S1. Alignment anatomic. Narrative 09/17/2018 12:20 PM EST XR LUMBAR SPINE AP AND LATERAL, 09/17/2018 9:45 AM CLINICAL HISTORY: Intraoperative imaging Procedure Note Chance Mckeon MD - 09/17/2018 XR LUMBAR SPINE AP AND LATERAL, 09/17/2018 9:45 AM CLINICAL HISTORY: Intraoperative imaging IMPRESSION: Intraoperative imaging provided. Fluoroscopy time 0.87 minutes. 8 images obtained during anterior lumbar interbody fusion L5-S1. Alignment anatomic. us Leo Bennett MD IMG DIAGNOSTIC IMAGING ORDER EMILIA Final Result * INTRAOP AIRWAY PLACEMENT (09/17/2018 7:45 AM EST) Narrative [facility] - 09/17/2018 7:45 AM EST Miguel Richards Jr. DISH PERSON 09/17/2018 7:46 AM Intraop Airway Placement: Date/Time: 09/17/2018 7:36 AM Induction type: IV Mask size: Standard adult Pre-Oxygenation: Standard Mask ventilation: Easy mask ventilation Mask ventilation improved by: Jaw thrust, Chinlift and Oral airway Oral airway sizes: 100 Technique: Video laryngoscope Laryngoscope blade: Torres Blade size: 3 Grade view: I Airway type: ETT- cuffed Intubation assist devices: Stylet 14fr Airway location: Oral Device size: 7.5mm Secured at: 22 cm Secured by: Tape Measured from: Lips Placement verified: Auscultation, End tidal CO2 and Symmetric chest wall motion Condition: Unchanged and Atraumatic Insertion attempts: 1 Title: DISH PERSON Procedure Note Miguel Richards Jr., DISH PERSON - 09/17/2018 7:45 AM EST Intraop Airway Placement: Date/Time: 09/17/2018 7:36 AM Induction type: IV Mask size: Standard adult Pre-Oxygenation: Standard Mask ventilation: Easy mask ventilation Mask ventilation improved by: Jaw thrust, Chinlift and Oral airway Oral airway sizes: 100 Technique: Video laryngoscope Laryngoscope blade: Torres Blade size: 3 Grade view: I Airway type: ETT- cuffed Intubation assist devices: Stylet 14fr Airway location: Oral Device size: 7.5mm Secured at: 22 cm Secured by: Tape Measured from: Lips Placement verified: Auscultation, End tidal CO2 and Symmetric chestwall motion Condition: Unchanged and Atraumatic Insertion attempts: 1 Title: DISH PERSON us Kostas Verdugo DO [place] ANESTHESIA Final Result [facility] [address] [place] [address] * BB HISTORY CHECK (09/10/2018 10:02 AM EST) [facility] BB HISTORY CHECK (1) No Previous History 09/10/2018 10:55 AM EST [facility] Blood VENOUS BLOOD / Unknown Venipuncture / Unknown 09/10/2018 10:02 AM EST 09/10/2018 10:07 AM EST Leo Bennett MD BLOOD BANK ORDERABLES Final Result Performing Organization Address City/[facility]/ZIP Co de Phone Number [facility] [address] [place] [address] * SURGERY DATE (09/10/2018 10:02 AM EST) [facility] Surgery Date (1) Complete 09/10/2018 10:58 AM EST [facility] Blood VENOUS BLOOD / Unknown Venipuncture / Unknown 09/10/2018 10:02 AM EST 09/10/2018 10:07 AM EST Leo Bennett MD BLOOD BANK ORDERABLES Final Result Performing Organization Address City/[facility]/ZIP Co de Phone Number [facility] [address] [place] [address] * STAPHYLOCOCCUS AUREUS SCREEN (09/10/2018 10:02 AM EST) [facility] Staph aureus PCR Not Detected Not Detected 09/10/2018 1:00 PM EST [facility] [place] MRSA PCR Not Detected Not Detected 09/10/2018 1:00 PM EST [facility]OWGLI, [place] Swab BOTH ANTERIOR NARES / Unknown 09/10/2018 10:02 AM EST 09/10/2018 10:07 AM EST Narrative [facility] [place] - 09/10/2018 1:00 PM EST Staphylococcus aureus target DNA sequence is not detected. This qualitative assay is intended for the detection of Staphylococcus aureus proprietary sequences for the staphylococcal protein A (spa) gene, the gene for methicillin resistance (mecA), and the staphylococcal cassette chromosome mec (SCCmec) inserted into the SA chromosomal attB site. This assay utilizes real time PCR on the [employer] GeneXpert Infinity, and its performance has been verified by the [facility]. A negative result does not rule out the presence of the Staphylococcus aureus or Methicillin resistant Staphylococcus aureus in concentrations below the limit of detection for the assay. This assay is FDA cleared to test on nares swabs collected on patients >21 years of age. Testing on patients < 21 years of age and on umbilicus sources is not FDA approved by this methodology, but has been developed and validated by the [facility] laboratory. Detailed methodology is available upon request. Leo Bennett MD MICROBIOLOGY - GENERAL ORDER EMILIA Final Result Performing Organization Address City/[facility]/ZIP Co de Phone Number [facility] [address] [facility] [place] [address] * VITAMIN D 25 HYDROXY (09/10/2018 10:02 AM EST) Vit D 25 OH 37.1 30.0 - 120.0 ng/mL 09/10/2018 2:13 PM EST [facility] Comment: INTERPRETIVE INFORMATION: Vitamin D, 25-Hydroxy <20 ng/mL Deficiency 20 - 29 ng/mL Insufficiency 30 - 80 ng/mL Optimum Level >120 ng/mL Possible Toxicity NOTE: For infants and children up to 17 years of age, the optimum level is >=20 ng/mL. This assay accurately quantifies the sum of vitamin D3, 25-Hydroxy and vitamin D2, 25-Hydroxy. Blood VENOUS BLOOD / Unknown Venipuncture / Unknown 09/10/2018 10:02 AM EST 09/10/2018 10:07 AM EST Leo Bennett MD CHEMISTRY ORDERABLES Final R esult Performing Organization Address City/[facility]/ZIP Co de Phone Number [facility] [address] [place] [address] * ABORH (09/10/2018 10:02 AM EST) ABORH Int O POS 09/10/2018 11:42 AM EST [facility] Blood VENOUS BLOOD / Unknown Venipuncture / Unknown 09/10/2018 10:02 AM EST 09/10/2018 10:07 AM EST Leo Bennett MD BLOOD BANK ORDERABLES Final Result [facility] [address] [place] [address] * ANTIBODY SCREEN IGG (09/10/2018 10:02 AM EST) [facility]SC IgG Int Negative 09/10/2018 11:42 AM EST [facility] Blood VENOUS BLOOD / Unknown Venipuncture / Unknown 09/10/2018 10:02 AM EST 09/10/2018 10:07 AM EST Leo Bennett MD BLOOD BANK ORDERABLES Final Result Performing Organization Address [facility] Co de Phone Number [facility] [address] [place] [address] Visit Diagnoses Diagnosis Start Date Pre-op testing Preoperative examination, unspecified 09/10/2018 Vitamin D deficiency Unspecified vitamin D deficiency 09/10/2018 Preop testing Preoperative examination, unspecified 09/10/2018 Back pain, unspecified back location, unspecified back pain laterality, unspecified chronicity 09/10/2018 Neurogenic claudication Spinal stenosis, lumbar region, with neurogenic claudication 09/17/2018 Chest pain, unspecified type 11/18/2018 Chest pain, unspecified type 11/17/2018 Left leg swelling 11/17/2018 Coronary artery disease involving [place] coronary artery of 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 pectoris 11/17/2018 Hx of myocardial infarction Old myocardial infarction 11/17/2018 Non-STEMI (non-ST elevated myocardial infarction) (HCC) Acute myocardial infarction, subendocardial infarction, episode of care unspecified 12/18/2018 Coronary artery disease involving [place] coronary artery of [place] heart, angina presence unspecified 12/18/2018 Non-STEMI (non-ST elevated myocardial infarction) (HCC) Acute myocardial infarction, subendocardial infarction, episode of care unspecified 02/19/2019 Essential hypertension Unspecified essential hypertension 02/19/2019 Ischemic heart disease Chronic ischemic heart disease, unspecified 09/17/2019 Coronary artery disease involving [place] coronary artery of [place] heart, angina presence unspecified 09/17/2019 Essential hypertension Unspecified essential hypertension 09/17/2019 Ischemic heart disease Chronic ischemic heart disease, unspecified 01/12/2020 Hx of myocardial infarction Old myocardial infarction 01/12/2020 Essential hypertension Unspecified essential hypertension 01/12/2020 Ischemic heart disease Chronic ischemic heart disease, unspecified 01/22/2020 Hx of myocardial infarction Old myocardial infarction 01/22/2020 Essential hypertension Unspecified essential hypertension 01/22/2020 Ischemic heart disease Chronic ischemic heart disease, unspecified 2020 Hx of myocardial infarction Old myocardial infarction 2020 Coronary artery disease involving [place] coronary artery of [place] heart, angina presence unspecified 2020 Essential hypertension Unspecified essential hypertension 2020 Ischemic heart disease Chronic ischemic heart disease, unspecified 01/12/2021 Essential hypertension Unspecified essential hypertension 01/12/2021 Coronary artery disease involving [place] coronary artery of [place] heart, angina presence unspecified 01/12/2021 Ischemic heart disease Chronic ischemic heart disease, unspecified 06/22/2021 Hx of myocardial infarction Old myocardial infarction 06/22/2021 Essential hypertension Unspecified essential hypertension 06/22/2021 Unstable angina pectoris (HCC) Intermediate coronary syndrome 01/04/2022 Essential hypertension Unspecified essential hypertension 01/04/2022 Ischemic heart disease Chronic ischemic heart disease, unspecified 01/04/2022 Essential hypertension Unspecified essential hypertension 07/12/2022 Ischemic heart disease Chronic ischemic heart disease, unspecified 07/12/2022 Essential hypertension Unspecified essential hypertension 11/29/2022 Coronary artery disease involving [place] coronary artery of 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 pectoris 11/29/2022 Essential hypertension Unspecified essential hypertension 01/03/2023 Coronary artery disease involving [place] coronary artery of 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 pectoris 01/03/2023 Ex-smoker for less than 1 year 01/25/2023 Coronary artery disease involving [place] coronary artery of 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 pectoris 01/25/2023 Essential hypertension Unspecified essential hypertension 01/25/2023 Coronary artery disease involving [place] coronary artery of 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 pectoris 08/02/2023 Essential hypertension Unspecified essential hypertension 08/02/2023 Ischemic heart disease Chronic ischemic heart disease, unspecified 02/21/2024 Coronary artery disease involving [place] coronary artery of 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 pectoris 02/21/2024 Essential hypertension Unspecified essential hypertension 02/21/2024 Coronary artery disease involving [place] coronary artery of 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 pectoris 05/22/2024 Essential hypertension Unspecified essential hypertension 05/22/2024 Coronary artery disease involving [place] coronary artery of 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 pectoris 12/04/2024 Essential hypertension Unspecified essential hypertension 12/04/2024 Tobacco abuse Tobacco use disorder 12/04/2024 DDD (degenerative disc disease), lumbar Degeneration of lumbar or lumbosacral intervertebral disc 09/17/2018 Foraminal stenosis of lumbar region Spinal stenosis, lumbar region, without neurogenic claudication 09/17/2018 Chest pain Chest pain, unspecified 11/17/2018 Left leg swelling 11/17/2018 CAD (coronary artery disease), [place] coronary artery Coronary atherosclerosis of [place] coronary artery 11/17/2018 Ex-smoker for less than 1 year 11/17/2018 Non-STEMI (non-ST elevated myocardial infarction) (HCC) Acute myocardial infarction, subendocardial infarction, episode of care unspecified 11/17/2018 Care Teams Shopper'S Aide Relationship Specialty Start Date End Date Arnold Veronica MD [address] [address] Internal Medicine-Cardiovascular Disease 01/25/23
--- NOTE | 2025-04-13 12:42 | HMH.EDGENADL ---
Discharge Plan Disposition Patient Disposition: Home, Self-Care Condition: Good Prescriptions Prescriptions: No Action lisinopril 20 mg tablet 20 mg PO DAILY Patient Comments: TAKE 1 TABLET BY MOUTH ONCE DAILY metoprolol succinate 50 mg tablet extended release 24 hr 50 mg PO DAILY Qty: 30 2RF aspirin [Adult Low Dose Aspirin] 81 mg tablet,delayed release (DR/EC) 81 mg PO DAILY atorvastatin 40 mg tablet See Rx Instructions .ROUTE .COMPLEX Qty: 30 0RF Dose Instruction: TAKE 1 TABLET BY MOUTH AT BEDTIME. NEEDS APPT. Rx Instructions: TAKE 1 TABLET BY MOUTH AT BEDTIME. NEEDS APPT. Referrals Follow up/Referrals: Provider,Referral, MD [Primary Care Provider, Medical] - See instructions Activity Restrictions/Add. Instructions Additional Instructions/Restrictions: Please follow-up with your primary care doctor and continue to check your blood pressure. Please return with any new or worsening symptoms. Clinical Impressions Clinical Impression: Headache Print Language Print Language: Zambian Discharge ED Provider: Josep Mccoy Adult HPI General Chief complaint: Headache Stated complaint: Headache, High BP Time Seen by Provider: 04/13/25 12:42 History of Present Illness HPI narrative: Patient presents for evaluation of gradual onset headache, starting today, with associated hypertension. Patient reports exacerbating preceding argument with his spouse. His headache was not maximal onset in severity. He denies any weakness, numbness, visual changes, chest pain, shortness of breath. He has been compliant with his antihypertensive therapy for known diagnosis of hypertension. He reports that normally his blood pressure is well-controlled with the exception of today. Highest systolic he noticed at home was approximately 160. No previous therapies. No neck pain. No falls. No blood thinner usage. Please note that above description of symptoms, in this electronic medical record under categorization of recalled from ER triage doctor by RN are reflective of an initial nursing assessment, however, is not reflective of my full history and physical exam that was personally taken and clarified. Consequentially, this preceding description of symptoms, which may include the patient's categorized chief complaint in the EMR, do not reflect my personal clinical impression, and the ultimate description of history of present illness and patient stated complaints should be deferred to this section of the note. Unless stated otherwise or congruent with this section of the note, additional signs, symptoms, or incongruence should be interpreted as inaccurate with my clinical impression. Related Data Home Medications ?Medication ?Instructions ?Recorded ?Confirmed aspirin 81 mg tablet,delayed 81 mg PO DAILY Blood thinner 08/22/18 07/29/22 release (Adult Low Dose Aspirin) lisinopril 20 mg tablet 20 mg PO DAILY 09/03/23 09/03/23 Previous Rx's ?Medication ?Instructions ?Recorded atorvastatin 40 mg tablet See Rx Instructions .Route 03/27/23 .COMPLEX #30 tabs metoprolol succinate 50 mg 50 mg PO DAILY #30 tabs 09/03/23 tablet,extended release 24 hr Allergies Allergy/AdvReac Type Severity Reaction Status Date / Time azithromycin (AZITHROMYCIN) Allergy Unknown Verified 07/29/22 14:20 diphenhydramine (From Allergy Unknown Verified 07/29/22 14:20 BENADRYL) [facility] Disclaimer: The information contained in this section may have been updated after the patient was seen, as this information can be updated by other users. Medical History (Updated 04/13/25 @ 14:53 by Josep Mccoy MD) History of smoking greater than 50 pack years Normal colonoscopy History of heart attack CAD (coronary artery disease) Left otitis media Surgical History History of back surgery H/O heart artery stent Social History Smoking Status: Former smoker tobacco type: cigarettes packs per day: 1 alcohol intake: never substance use type: denies use current occupational status: disabled Travel in the last 8 weeks?: None caffeine: No Have you lived/traveled outside US in past 30 days?: No Contact w/someone who lives/traveled outside US past 30 days?: No Exposure to someone with infectious disease in past 14 days?: No Do you have a fever (greater than 100.4 F or 38 C)?: No Have you tested positive for COVID-19?: No Exposed to someone with COVID-19 in past 14 days?: No Do you have a sore throat?: No Do you have a cough?: No Do you have any weakness?: No Do you have any diarrhea?: No Are you experiencing any unusual bleeding?: No Do you have any muscle aches/pain?: No Do you have any abdominal pain?: No Are you experiencing loss of taste or smell?: No Other Medical History Have you received the Flu Vaccine for this season: No Have you received the Pneumonia Vaccine: Yes ROS Obtained: Yes other As per HPI Physical Exam General General appearance: alert and in no apparent distress Head Head exam: atraumatic and normocephalic Eye Eye exam: Present normal appearance Neck Neck exam: Present normal inspection Chest Chest inspection: Present normal inspection and symmetric chest wall rise Respiratory Respiratory exam: Present normal lung sounds bilaterally; Absent respiratory distress Cardiovascular Cardiovascular exam: Present regular rate and normal rhythm Abdominal Exam Abdominal exam: Present soft Neurological Exam Neurological exam: Present alert and oriented X3 Psychiatric Psychiatric exam: Present normal affect and normal mood Skin Skin exam: Present warm and dry Medical Decision Making Medical Records Medical records reviewed: Yes I reviewed the patient's medical records. Screening: Per USPSTF and CDC recommendations, given the prevalence of disease in our region, it is our hospital?s policy to screen for HIV and viral Hepatitis for all patients aged 18 and over and those with ongoing risk factors. Alistair Inquiry Pt receiving controlled substance: No Vital Signs: 04/13/25 12:44 04/13/25 13:07 04/13/25 13:30 Temperature 98.9 F Temperature Source Oral Pulse Rate 63 63 Pulse Rate [Left] 70 Respiratory Rate 20 Blood Pressure 134/81 133/71 Blood Pressure [Right Arm] 163/91 H Blood Pressure Mean [Right Arm] 115 Blood Pressure Source Blood Pressure Source [Right Arm] Automatic Cuff Blood Pressure Position 02 Sat by Pulse Oximetry 98 96 96 Oxygen Delivery Method Room Air 04/13/25 14:01 04/13/25 14:30 04/13/25 15:06 Temperature 98.3 F Temperature Source Oral Pulse Rate 61 58 L 86 Pulse Rate [Left] Respiratory Rate 20 Blood Pressure 134/83 140/82 140/86 Blood Pressure [Right Arm] Blood Pressure Mean [Right Arm] Blood Pressure Source Automatic Cuff Blood Pressure Source [Right Arm] Blood Pressure Position Sitting 02 Sat by Pulse Oximetry 96 94 L Oxygen Delivery Method Room Air Lab Data Lab Results 04/13/25 12:49: Sodium 138, Potassium 4.4, Chloride 109 H, Carbon Dioxide 25, Anion Gap 8.4, BUN 19, Creatinine 1.20, Estimated Creat Clear 91, Estimated GFR 60, Est GFR ( Amer) 72, Glucose 112 H, Calcium 8.9, Phosphorus 2.4 L, Magnesium 1.9, Total Bilirubin 0.5, AST 39, ALT 33, Alkaline Phosphatase 67, Total Protein 6.6, Albumin 4.0, Globulin 2.6, Albumin/Globulin Ratio 1.5 04/13/25 13:05: WBC 8.9, RBC 4.50 L, Hgb 13.7 L, Hct 41.7 L, MCV 92.7, MCH 30.4, MCHC 32.9, RDW 13.3, Plt Count 188, MPV 10.2, Neut % (Auto) 64.3, Lymph % (Auto) 21.0, Winn % (Auto) 10.0 H, Eos % (Auto) 3.3, Baso % (Auto) 1.1, Neut # (Auto) 5.7, Lymph # (Auto) 1.9, Winn # (Auto) 0.9, Eos # (Auto) 0.3, Baso # (Auto) 0.1 04/13/25 13:05 04/13/25 12:49 Orders (Tests/Meds): ED MEDICATIONS Discontinued Medications Generic Name Dose Route Start Last Admin Trade Name Hetal PRN Reason Stop Dose Admin Acetaminophen 1,000 mg 04/13/25 13:01 04/13/25 13:11 Acetaminophen 500mg Tab PO 04/13/25 13:02 1,000 mg ONCE ONE Administration Sodium Chloride 1,000 mls @ 999 mls/hr 04/13/25 13:01 04/13/25 13:11 Sod Chlor 0.9% 1000ml Bag IV 04/13/25 14:01 999 mls/hr .Q1H1M ONE Administration Ketorolac Tromethamine 15 mg 04/13/25 13:01 04/13/25 13:11 Ketorolac 30mg/Ml Vial IV 04/13/25 13:02 15 mg ONCE ONE Administration Prochlorperazine Edisylate 10 mg 04/13/25 13:01 04/13/25 13:11 Prochlorperazine 10mg/2ml Vial IV 04/13/25 13:02 10 mg ONCE ONE Administration ORDERS Category Date Time Status CBC w/Auto Diff [Complete Blood Count Auto Diff] Stat Lab 04/13/25 13:05 Completed CMP [Comprehensive Metabolic Panel] Stat Lab 04/13/25 12:49 Completed MAG [Magnesium] Stat Lab 04/13/25 12:49 Completed PHOS [Phosphorous] Stat Lab 04/13/25 12:49 Completed Medical Decision Narrative: Patient with history and exam per above presenting for evaluation of headache, hypertension Diagnoses considered include tension headache, patient denies history of migraines, systolic upon arrival to the emergency department 160, patient clinically exhibits no symptoms of hypertensive encephalopathy. Suspect hyper tension attributable to headache rather than precipitant. Patient exhibits no focal neurologic deficits concerning for stroke. ED workup and treatment included: ED MEDICATIONS Discontinued Medications Generic Name Dose Route Start Last Admin Trade Name Hetal PRN Reason Stop Dose Admin Acetaminophen 1,000 mg 04/13/25 13:01 04/13/25 13:11 Acetaminophen 500mg Tab PO 04/13/25 13:02 1,000 mg ONCE ONE Administration Sodium Chloride 1,000 mls @ 999 mls/hr 04/13/25 13:01 04/13/25 13:11 Sod Chlor 0.9% 1000ml Bag IV 04/13/25 14:01 999 mls/hr .Q1H1M ONE Administration Ketorolac Tromethamine 15 mg 04/13/25 13:01 04/13/25 13:11 Ketorolac 30mg/Ml Vial IV 04/13/25 13:02 15 mg ONCE ONE Administration Prochlorperazine Edisylate 10 mg 04/13/25 13:01 04/13/25 13:11 Prochlorperazine 10mg/2ml Vial IV 04/13/25 13:02 10 mg ONCE ONE Administration ORDERS Category Date Time Status CBC w/Auto Diff [Complete Blood Count Auto Diff] Stat Lab 04/13/25 13:05 Completed CMP [Comprehensive Metabolic Panel] Stat Lab 04/13/25 12:49 Completed MAG [Magnesium] Stat Lab 04/13/25 12:49 Completed PHOS [Phosphorous] Stat Lab 04/13/25 12:49 Completed Labs were independently interpreted by me, significant for creatinine within normal limits, mild hypophosphatemia, however magnesium within normal limits, glucose within normal limits, sodium within normal limits. Patient reports complete resolution of symptoms upon repeat evaluation. He is requesting to be discharged at this time. I discussed my clinical impression with patient and answered all questions. At this time, the evidence for any other entities in the differential is insufficient to warrant any further testing or ED observation. This was explained to the patient. The patient was advised that persistent or worsening symptoms require further evaluation. Critical Care Critical Care Time Critical Care Time: No
[2025-04-13 12:44] VITALS: BP 163/91; PULSE 70; RESP 20; TEMP 37.2; O2SAT 98; BMI 32.1
--- NOTE | 2025-04-13 12:44 | ECG_ITS ---
APPROVED REPORT Exam: Resting ECG HR:65 bpm ECG Measurements Heart Rate 65 AXES MO 194 P 52 QRSd 114 QRS -39 QT 400 T 35 QTc 411 Conclusion SINUS RHYTHM LEFT AXIS DEVIATION [QRS AXIS < -30] PATTERN CONSISTENT WITH PULMONARY DISEASE MODERATE INTRAVENTRICULAR CONDUCTION DELAY [110+ ms QRS DURATION] Electronically signed by : JOLANTA MOLINA, 04/14/2025 13:07:57
[2025-04-13 13:07] VITALS: BP 134/81; PULSE 63; O2SAT 96
[2025-04-13 13:09] LABS: Chloride 109 mmol/L (98-107); Sodium 138 mmol/L (136-145)
[2025-04-13 13:10] LABS: Potassium 4.4 mmoL/L (3.5-5.1)
[2025-04-13] MEDS: PROCHLORPERAZINE 10MG/2ML VIAL 10 MG IV (13:11)
[2025-04-13] MEDS: ACETAMINOPHEN 500MG TAB 1000 MG PO (13:11)
[2025-04-13] MEDS: 0.9 % SODIUM CHLORIDE 1000ML 1,000 ML 999 ML IV (13:11)
[2025-04-13] MEDS: KETOROLAC 30MG/ML VIAL 15 MG IV (13:11)
[2025-04-13 13:12] LABS: Alanine Aminotransferase 33 U/L (12-78); Albumin/Globulin Ratio 1.5 (1.1-1.8); Anion Gap 8.4 mEq/L (5-15); Aspartate Amino Transferase 39 U/L (17-59); Blood Urea Nitrogen 19 mg/dl (9-20); Carbon Dioxide 25 mmol/L (22.0-30.0); Creatinine Clearance Estimated 91 mL/min (50-200); Estimated Glomerular Filt Rate 60 ml/min (>60); GFR (African American) 72 ML/MIN (>60); Globulin 2.6 g/dL (1.3-3.2); Total Protein,Serum 6.6 g/dl (6.3-8.2)
[2025-04-13 13:13] LABS: Alkaline Phosphatase 67 U/L (38-126); Bilirubin,Total 0.5 mg/dl (0.2-1.3); Calcium 8.9 mg/dl (8.4-10.2); Glucose 112 mg/dl (74-100); Magnesium 1.9 mg/dl (1.6-2.3); Phosphorous 2.4 mg/dl (2.5-4.5)
[2025-04-13 13:16] LABS: Basophils # 0.1 K/mm3 (0-0.2); Basophils % 1.1 % (0.1-2.0); Eosinophils # 0.3 Kmm3 (0.0-0.4); Eosinophils % 3.3 % (0.1-12.0); Hematocrit 41.7 % (42.0-52.0); Hemoglobin 13.7 g/dL (14.1-18.0); Immature Granulocytes # 0.03 10^3uL; Immature Granulocytes % 0.3 %; Lymphocytes # 1.9 K/mm3 (0.7-4.5); Mean Corpuscular HGB Conc 32.9 g/dL (31.8-35.4); Mean Corpuscular Hemoglobin 30.4 pg (27.0-31.2); Mean Corpuscular Volume 92.7 fl (80-94); Mean Platelet Volume 10.2 fl (7.4-10.4); Monocytes # 0.9 K/mm3 (0.1-1.0); Neutrophils # 5.7 K/mm3 (1.8-7.8); Neutrophils % 64.3 % (37.0-80.0); Nucleated Red Blood Cells # 0 10^3/uL; Nucleated Red Blood Cells % 0 %; Platelet Count 188 K/mm3 (142-424); Red Cell Distribution Width 13.3 % (11.5-17.5); Red Cell Distribution Width-SD 45.4 fL; White Blood Count 8.9 K/mm3 (4.8-10.8)
[2025-04-13 13:30] VITALS: BP 133/71; PULSE 63; O2SAT 96
[2025-04-13 14:01] VITALS: BP 134/83; PULSE 61; O2SAT 96
[2025-04-13 14:30] VITALS: BP 140/82; PULSE 58; O2SAT 94
[2025-04-13 15:06] VITALS: BP 140/86; PULSE 86; RESP 20; TEMP 36.8; O2SAT 99
== END 2025-04-13 15:06 | disposition home or self-care (01) ==
PROVIDERS: Emergency Provider Emergency Medicine
DX: R51.9 Headache, unspecified (principal); I10 Essential (primary) hypertension; Z87.891 Personal history of nicotine dependence; Z86.79 Personal history of other diseases of the circulatory system
CPT/HCPCS: 80053; 83735; 84100; 85025; 93005; 96361; 96374; 96375; 99284; J0780; J1885; J7030

== ENCOUNTER 2025-07-13 15:17 | Outpatient (CLI) | payer MEDICARE, SELFPAY ==
--- OUTSIDE RECORDS SUMMARY | 2025-06-16 16:15 | XMS_ITS | Encounter Summary ---
Author Organization [place] [address] Care Team Providers Care Infectious Diseases Physician Name Role Phone Arnold Veronica MD Unavailable Reason for Visit * Reason Comments Hypertension 6-Month Follow-up Coronary Artery Disease Encounter Details Date Type Department Care Team (Late st Contact Info) Description 06/16/2025 4:15 PM EDT Office Visit [facility] [place] [address] [place] [address] Arnold Veronica MD [address] [place] [address] Coronary artery disease involving [place] coronary artery of [place] heart without angina pectoris (Primary Dx); Essential hypertension Social History Tobacco Use Types Packs/Day Years Used Date Smoking Tobacco: Every Day Cigarettes 0.8 50.2 Started: 07/06/1968; Last attempted to quit: 09/03/2018 Smokeless Tobacco: Never Tobacco Cessation:Ready to Q uit: Not Asked; Counseling Given: Not Answered Alcohol Use Standard Drinks/Week Comments Yes 0 (1 standard drink = 0.6 oz pur e alcohol) beer every 2-3 months Sex and Gender Information Value Date Recorded Sex Assigned at Not on file Legal Sex Male 10:17 AM EDT Gender Identity Not on file Sexual Orientation Not on file documented as of this encounter Last Filed Vital Signs Vital Sign Reading Time Taken Comments Blood Pressure 134/78 06/16/2025 3:45 PM EDT Pulse 67 06/16/2025 3:45 PM EDT Temperature - - Respiratory Rate - - Oxygen Saturation 93% 06/16/2025 3:45 PM EDT Inhaled Oxygen Concentration - - Weight 116.6 kg (257 lb) 06/16/2025 3:45 PM EDT Height 182.9 cm (6') 06/16/2025 3:45 PM EDT Body Mass Index 34.86 06/16/2025 3:45 PM EDT documented in this encounter Functional Status * Is the person deaf or does he/she have serious difficulty hearing? Answer Date of Assessment Author No 11/19/2018 11:49 AM Milly Fernando RN * Is the person blind or does he/she have serious difficulty seeing even when wearing glasses? Answer Date of Assessment Author No 11/19/2018 11:49 AM Milly Fernando RN * Does this person have serious difficulty walking or climbing stairs? Answer Date of Assessment Author No 11/19/2018 11:49 AM Milly Fernando RN * Does this person have difficulty dressing or bathing? Answer Date of Assessment Author No 11/19/2018 11:49 AM Milly Fernando RN * Because of a physical, mental or emotional condition, does this person have difficulty doing errands alone such as visiting a doctor's office or shopping? Answer Date of Assessment Author No 11/19/2018 11:49 AM Milly Fernando RN documented as of this encounter Mental Status * Because of a physical, mental or emotional condition, does this person have serious difficulty concentrating, remembering or making decisions? Answer Entry Date Author No 11/19/2018 11:49 AM Milly Fernando RN documented in this encounter Progress Notes * Arnold Veronica MD - 06/16/2025 4:15 PM EDT Cardiology Follow Up Note [facility] Date of Visit: 06/16/2025 Chief Complaint: Chief Complaint Patient presents with Hypertension 6-Month Follow-up Coronary Artery Disease SUBJECTIVE: Doing okay. Active with [employer] work. Gets short of breath if running up stairs. Has not smoked since November. Denies chest pain. Patient denies lower extremity edema, PND, orthopnea, lightheadedness, syncope or palpitations. REVIEW OF SYSTEMS: POSITIVE FOR: Dyspnea on exertion. NEGATIVE FOR: Cardiovascular: Chest pain, pnd, orthopnea, presyncope, syncope, palpitations. Respiratory: Shortness of breath at rest, cough, wheezing. Gastrointestinal: Nausea, vomiting, diarrhea, constipation, hematochezia, melena. Genitourinary: Dysuria, hematuria. Musculoskeletal: Edema. MEDICATIONS: Current Outpatient Medications Medication Sig Dispense Refill acetaminophen 325 mg Oral Capsule Take 325 mg by mouth as needed. aspirin 81 mg Oral Tablet, Delayed Release (E.C.) Take by mouth daily. atorvastatin (LIPITOR) 40 mg Oral Tablet Take 1 tablet by mouth once daily 90 Tablet 3 ergocalciferol, vitamin D2, (VITAMIN D2 ORAL) Take by mouth daily. lisinopriL (PRINIVIL;ZESTRIL) 20 mg Oral Tablet tablet Take 1 Tablet by mouth daily. 90 Tablet 3 metoprolol succinate (TOPROL-XL) 25 mg Oral Tablet Sustained Release 24 hr Take 1 tablet by mouth once daily 90 Tablet 3 multivitamin, stress formula (ALLBEE VIT WITH C & B COMPLEX) Oral Tablet Take 1 Tab by mouth daily. nitroGLYCERIN (NITROSTAT) 0.4 mg SL Tablet, Sublingual Place 1 Tablet under the tongue every 5 minutes as needed for Chest pain. 20 Tablet 2 Varenicline (CHANTIX STARTING MONTH BOX) 0.5 mg (11)- 1 mg (42) Oral Tablets, Dose Pack Use as directed. 42 Tablet 1 No current facility-administered medications for this visit. PHYSICAL EXAMINATION: Vitals: 06/16/25 1545 BP: 134/78 Pulse: 67 SpO2: 93% Weight: 257 lb (116.6 kg) Height: 6' (1.829 m) Body mass index is 34.86 kg/m??. CONSTITUTIONAL: No apparent distress. Alert and oriented. EYES: Anicteric sclerae, extraoccular muscles intact. EARS, NOSE, MOUTH, THROAT: Oropharynx is moist. Face is atraumatic. NECK: Supple, no masses, no lymphadenopathy. RESPIRATORY: Respiratory effort is normal. Lungs are clear without wheezes or rales. CARDIOVASCULAR: Rate as above. Rhythm is regular. Soft S1 and S2. No murmurs, rubs, gallops. No lower extremity edema. No visible jugular venous distension. Radial pulses are 2+ bilaterally. Lower extremity distal pulses are 1+ bilaterally. Normal carotid upstroke. No carotid bruits. GASTROINTESTINAL: Bowel sounds are normal. Hepatomegaly is absent. Abdomen is soft, nontender without guarding or rebound tenderness. MUSCULOSKELETAL: Cyanosis is absent. SKIN: Rashes are visually absent. Skin intact. NEUROLOGICAL: Cranial nerves are grossly intact. Speech is normal. PSYCHIATRIC: Mood is normal. Affect is normal. LABORATORY STUDIES: Pertinent laboratory studies have been reviewed. EC02/21/24 sinus 64; LAFB; IVCD; nonsp t ant-lat. 01/04/22 sinus 66; nonsp ST+TWI ant-lat, inf. Cardiac Studies: 11/18/18 LHC/PCI Final result Mid RCA lesion 90% stenosed. Moderate diffuse three vessel ds High grade ds involving Mid RCA using 3.5 x 32 Synergy AUBRIE Final result Impression: High-grade stenosis involving the midportion of stenting of right coronary artery. Inferobasilar akinesis ejection fraction approximate 40% 11/18/18 TTE IMPRESSION CONCLUSIONS Normal global left ventricular systolic function. Mild right ventricular dilatation. Mild left atrial dilatation. Normal size aortic root and proximal ascending aorta. No hemodynamically significant valve ds PROBLEM LIST: Coronary artery disease Hypertension Hyperlipidemia Remote family history of heart disease Current tobacco abuse ASSESSMENT AND PLAN: Juma Hoffman is a 69 y.o. male with a history of CAD, IN, HTN, HLD, GERD, arthritis who was previously seen by Dr. Nixon. I saw him for the first time 01/2023 for transfer of care and for regular follow-up. Office visit today for regular follow-up. 1. Coronary artery disease. History of CAD with prior LAD stent. Per patient this was in 2011 in [facility]. Then NSTEMI 11/2018 s/p LHC/PCI 11/2018 with AUBRIE to 90% mid RCA additionally with stent visualized in the prox LAD with calcification in the LAD; LVEF by ventriculogram 40%. TTE 11/2018 with LVE 50-55%, normal RV function, mild LAE. LDL 01/2023 54. Had tried smoking cesation in the past. Chantix was too expensive. Nicotine patches caused rash. Nicotine gum upset stomach. Given information previously on [facility] smoking cessation program but did not look into it. After last visit he tried Chantix again and now has not smoked since 11/2024. Here today and stable.Active with upholstery work. Stable dyspnea on stairs. No chest pain. Appears well. Euvolemic. Blood pressure very mildly above goal. Blood pressure this morning at homewas 130/80. Checks it about once per day and mostly 110s/60s-70s. Current cardiac related meds include asa, lipitor, Toprol, lisinopril. Lipids 08/2023 with TG 63, LDL 64, HDL 31, TC 107. Reportedly got labs done after last visit at [facility]. We had ordered CBC, CMP and lipids. Plan: - Had labs checked at [facility] ([place], [place]). - Still needs to establish with a primary care doctor. - Continue current medications. - Discussed the need for healthy diet, low salt diet, exercise, healthy weight and adequate hydration. - Keep not smoking. Return in 6 monhts or sooner if necessary. Thank you for allowing me to participate in this patient's care. Please do not hesitate to contact me with any questions Arnold Veronica MD [facility] 06/16/2025 documented in this encounter Miscellaneous Notes * Patient Instructions - Arnold Veronica MD - 06/16/2025 4:15 PM EDT Had labs checked at [facility] ([place], [place]). Need to establish with a primary care doctor. Continue current medications. Discussed the need for healthy diet, low salt diet, exercise, healthy weight and adequate hydration. Keep not smoking. Return in 6 monhts or sooner if necessary. documented in this encounter Plan of Treatment Upcoming Encounters Date Type Department Care Team (Late st Contact Info) Description 12/17/2025 3:15 PM EST Office Visit [facility] [address] [address] Arnold Veronica MD [address] [place] [address] [place] [address] documented as of this encounter Visit Diagnoses Diagnosis Coronary artery disease involving [place] coronary artery of [place] heart without angina pectoris- Primary Essential hypertension Unspecified essential hypertension documented in this encounter Additional Health Concerns Assessment Noted Time A fall risk assessment has been complete d for the patient 06/22/2021 12:44 PM EDT documented as of this encounter Care Teams Infectious Diseases Physician Relationship Specialty Start Date End Date Arnold Veronica MD [address] [place] [address] Internal Medicine-Cardiovascular Disease 01/25/23 documented as of this encounter
[2025-07-13 19:50] LABS: Hematocrit 42.1 % (42.0-52.0); Hemoglobin 13.7 g/dL (14.1-18.0); Immature Granulocytes % 0.2 %; Mean Corpuscular HGB Conc 32.5 g/dL (31.8-35.4); Mean Corpuscular Hemoglobin 30.4 pg (27.0-31.2); Mean Corpuscular Volume 93.6 fl (80-94); Nucleated Red Blood Cells % 0 %; Platelet Count 208 K/mm3 (142-424); Red Blood Count 4.50 M/mm3 (4.60-6.20); Red Cell Distribution Width-SD 48.9 fL; White Blood Count 8.8 K/mm3 (4.8-10.8)
[2025-07-13 20:36] LABS: Alanine Aminotransferase 31 U/L (12-78); Albumin Level 4.1 g/dl (3.5-5.0); Albumin/Globulin Ratio 1.6 (1.1-1.8); Alkaline Phosphatase 72 U/L (38-126); Anion Gap 11.2 mEq/L (5-15); Aspartate Amino Transferase 34 U/L (17-59); Bilirubin,Total 0.4 mg/dl (0.2-1.3); Blood Urea Nitrogen 20 mg/dl (9-20); Calcium 9.0 mg/dl (8.4-10.2); Carbon Dioxide 26 mmol/L (22.0-30.0); Chloride 107 mmol/L (98-107); Creatinine,Serum 1.30 mg/dl (0.66-1.25); Estimated Glomerular Filt Rate 54 ml/min (>60); GFR (African American) 66 ML/MIN (>60); Globulin 2.5 g/dL (1.3-3.2); Glucose 107 mg/dl (74-100); Potassium 4.2 mmoL/L (3.5-5.1); Sodium 140 mmol/L (136-145); Total Protein,Serum 6.6 g/dl (6.3-8.2)
[2025-07-13 22:21] LABS: Hemoglobin A1C 5.5 % (4.0-6.0)
--- OUTSIDE RECORDS SUMMARY | 2025-07-14 10:56 | XMS_ITS ---
Author Organization Unknown TREATMENT PLAN Planned Care Start Date Provider Encounter for Check-up [phone] [facility]
--- OUTSIDE RECORDS SUMMARY | 2025-07-14 10:57 | XMS_ITS | Continuity of Care Document ---
Author Organization 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 (Primary Dx); Essential hypertension 04/28/2025 Telephone [facility] [place] [address] [place] [address] Arnold Veronica MD Reschedule 12/04/2024 2:30 PM EST Office Visit [facility] [address] [address] Arnold Veronica MD 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 (Primary Dx); Essential hypertension; Tobacco abuse 10/04/2024 Refill [facility] [address] [address] Arnold Veronica MD Medication Refill 08/11/2024 Refill [facility] [place] [address] [place] [address] Arnold Veronica MD Medication Refill 05/22/2024 Travel 05/22/2024 11:00 AM EDT Office Visit [facility]&[address] [address] Arnold Veronica MD 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 (Primary Dx); Essential hypertension 05/10/2024 Refill [facility]&[address] [address] Arnold Veronica MD Medication Refill 04/09/2024 Refill [facility]&[place] [address] Arnold Veronica MD Medication Refill 04/06/2024 Refill [facility] [address] Arnold Veronica MD Medication Refill 02/21/2024 Travel 02/21/2024 10:00 AM EDT Office Visit [facility]&[address] [address] Arnold Veronica MD Ischemic heart disease (Primary Dx); 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; Essential hypertension 01/11/2024 Refill [facility] [address] Arnold Veronica MD Medication Refill 11/18/2023 Refill [facility]&[address] [address] Arnold Veronica MD Medication Refill 10/14/2023 Refill [facility] [address] Arnold Veronica MD Medication Refill 08/19/2023 Refill [facility]&[address] [address] Arnold Veronica MD Medication Refill 08/02/2023 Travel 08/02/2023 10:45 AM EDT Office Visit [facility]&[address] [place] [address] Arnold Veronica MD 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 [address] [address] Arnold Veronica MD Medication Refill 01/25/2023 Travel 01/25/2023 10:30 AM EDT Office Visit 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 Discharge Disposition: Home or Self Care 12/20/2022 Refill [facility] [address] [address] Arnold Veronica MD Medication Refill 11/29/2022 Telephone [facility] [place] [address] [place] [address] Arnold Veronica MD Lab Orders 11/26/2022 Refill [facility] [address] [place] [address] Lopez Nixon MD Medication Refill 07/12/2022 Travel 07/12/2022 11:30 AM EDT Office Visit [facility]&[address] [address] Lopez Nixon MD Essential hypertension (Primary Dx); Ischemic heart disease 02/27/2022 Refill [facility] [address] [place] [address] [place] [phone] Lopez Nixon MD Medication Refill (Metoprolol) 01/04/2022 Travel 01/04/2022 11:15 AM EST Office Visit [facility]&[place] [address] Lopez Nixon MD Unstable angina pectoris (HCC) (Primary Dx); Essential hypertension; Ischemic heart disease 06/22/2021 Travel 06/22/2021 12:45 PM EDT Office Visit [address] [address] Lopez Nixon MD Ischemic heart disease (Primary Dx); Hx of myocardial infarction; Essential hypertension 05/01/2021 Refill [facility] [address] [place] [address] [place] [address] Lopez Nixon MD Medication Refill (Metoprolol) 04/03/2021 Refill [facility] [address] [address] [place] [address] Lopez Nixon MD Medication Refill 01/12/2021 Travel 01/12/2021 10:45 AM EST Office Visit [facility]&[address] [address] Lopez Nixon MD 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, angina presence unspecified (Primary Dx); Ischemic heart disease; Essential hypertension 12/05/2020 Refill [facility] [address] [place] [address] Lopez Nixon MD Medication Refill 2020 Travel 2020 10:45 AM EDT Office Visit [facility] [place] [address] [place] [address] Lopez Nixon MD Ischemic heart disease (Primary Dx); Hx of myocardial infarction; 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, angina presence unspecified; Essential hypertension 05/05/2020 Travel 01/22/2020 1:25 PM EDT - 01/22/2020 11:59 PM EDT Hospital Encounter [facility] [address] [place] [address] Ischemic heart disease; Hx of myocardial infarction; Essential hypertension Discharge Disposition: Home or Self Care 01/22/2020 Travel 01/12/2020 Travel 01/12/2020 2:45 PM EDT Office Visit [facility] [place] [address] [place] [address] Lopez Nixon MD Ischemic heart disease (Primary Dx); Hx of myocardial infarction; Essential hypertension 11/15/2019 Refill [facility] [address] [address] [place] [address] Lopez Nixon MD Medication Refill (Plavix) 09/25/2019 Refill [facility] [address] [address] [place] [address] Todd Doyle APRN Medication Refill 09/17/2019 11:45 AM EST Office Visit [facility] [place] [address] [place] [address] Lopez Nixon MD Ischemic heart disease (Primary Dx); 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, angina presence unspecified; Essential hypertension 06/13/2019 Telephone [facility] [address] [place] [address] Lopez Nixon MD Other 05/12/2019 Refill [facility] [address] [place] [address] [place] [address] Lopez Nixon MD Medication Refill 03/28/2019 Telephone [facility] [address] [place] [address] Jane Yi, MINNIE 02/19/2019 11:45 AM EDT Office Visit [facility] [address] [address] Lopez Nixon MD Non-STEMI (non-ST elevated myocardial infarction) (HCC) (Primary Dx); Essential hypertension 12/30/2018 Telephone [facility] [address] [address] Lopez Nixon MD Other 12/18/2018 11:30 AM EST Office Visit [facility] [address] [address] Lopez Nixon MD Non-STEMI (non-ST elevated myocardial infarction) (HCC) (Primary Dx); 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, angina presence unspecified 11/22/2018 Telephone [facility] [address] [place] [address] [address] [place] [address] Gisselle Grover, Clerical Staff Cardiac Rehab (Referral) 11/22/2018 Telephone [facility] [address] [place] [address] Lopez Nixon MD Medication Problem (Brilinta sideeffects/ Changed Rx to Plavix) 11/21/2018 Telephone [facility] [address] [place] [address] Lopez Nixon MD Other 11/17/2018 10:01 PM EST - 11/19/2018 12:00 PM EST Hospital Encounter [facility] [place] [id number] Milly Edwards MD Martin, K. 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 [address] Lopez Nixon MD CORONARY ANGIOGRAM / CARDIAC CATHETERIZATION 09/17/2018 5:49 AM EST - 09/19/2018 6:10 PM EST Hospital Encounter [facility] [address] [place] [address] Leo Bennett MD Discharge Disposition: Home or Self Care 09/17/2018 7:30 AM EST - 09/17/2018 12:45 PM EST Surgery [facility] [address] [place] [address] Leo Bennett MD ANTERIOR LUMBAR INTERBODY FUSION POSTERIOR LUMBAR FUSION PEDICLE SCREWS LAMINECTOMY 09/17/2018 7:26 AM EST Anesthesia Event [facility] [address] [place] [address] Kostas Verdugo, Eliane Oliveira, COMMERCIAL REPORTER 09/10/2018 9:30 AM EST - 09/10/2018 11:59 PM EST Hospital Encounter [facility] [address] [place] [id number] Pat, Marcel Pre-op testing (Primary Dx); Vitamin [...] lumbar region 09/18/2018 CAD (coronary artery disease), upper mattaponi coronary a rtery Hx of myocardial infarction Ischemic heart disease Family History Medical History Relation Name Comments bladder cancer Brother Lung Cancer Father Relation Name Status Comments Brother Father Social History Smoking Status as of 2025 Tobacco Use Types Packs/Day Years Used Date [...] Pulse 67 06/16/2025 3:45 PM EDT Temperature 37.1 C (98.8 F) 11/19/2018 9:06 AM EST Respiratory Rate 18 11/19/2018 9:06 AM EST Oxygen Saturation 93% 06/16/2025 3:45 PM EDT Inhaled Oxygen Concentration - - Weight 116.6 kg (257 lb) 06/16/2025 3:45 PM EDT Height 182.9 cm (6') 06/16/2025 3:45 PM EDT Body Mass Index 34.86 06/16/2025 3:45 PM EDT Plan of Treatment Upcoming Encounters Date Type Department Care Team (Late st Contact Info) Description 12/17/2025 3:15 PM EST Office Visit [facility] [address] [address] Arnold Veronica MD [address] [place] [address] [place] [address] Medical Devices Implanted Type Area Fishing Guide Device Identifier Shelf Expiration Date Model / Serial / Lot Kit Infuse Extra Small (Bmp) - [id number] Implanted:Qty: 1 on 09/17/2018 by Leo Bennett MD at [facility] N/A: Spine Lumbar [employer]:SOFAMO R DANEK 05/04/2019 [id number] / / [id number] Plate Lumbar [id number] 11mm - [id number] Implanted:Qty: 1 on 09/17/2018 by Leo Benentt MD at [facility] N/A: Spine Lumbar [employer] 03/05/2021 [id number] 1-12PC-STR / / [id number] Screw Selfdrilling 5.5x25mm - [id number] Implanted:Qty: 2 on 09/17/2018 by Leo Bennett MD at [facility] N/A: Spine Lumbar [employer] [id number] / / Stent Synergy(Mr) Everolimus-Eluti ng 3.50mm X 32mm - [id number] Implanted:Qty: 1 on 11/18/2018 by Shaq Clark MD at [facility] N/A: RCA [place] SCI:CARDIAC RHYTHM MGMT [id number] / / [id number] Procedures Procedure Name Priority Date/Time Associated Diagnosis Comments POCT EKG Routine 02/21/2024 10:17 AM EDT Ischemic heart disease LIPID PANEL REFLEX Routine 01/03/2023 11:03 AM EST 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 COMPREHENSIVE METABOLIC PANEL Routine 01/03/2023 11:03 AM EST Essential hypertension CBC Routine 01/03/2023 11:03 AM EST Essential hypertension POCT EKG Routine 01/04/2022 11:46 AM EST Unstable angina pectoris (HCC) POCT EKG Routine 01/12/2021 10:50 AM EST Ischemic heart disease 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, angina presence unspecified CBC WITH DIFF [...] LR POC Routine 11/18/2018 2:59 PM EST FILM TECHNICIAN HEMODYNAMIC WAVEFORMS Routine 11/18/2018 2:22 PM EST [...] Cardiology Consultation Admission: 11/18/2018 Patient: Juma Hoffman [id number] PCP:No primary care provider on file. Silk Screen Processor: None Presents with chest pain Cardiology consulted [...] History: Diagnosis Date CAD (coronary artery disease), upper mattaponi coronary artery Heartburn Hyperlipidemia Hypertension [place] (myocardial infarction) ([facility]) 2009 Motion sickness Post-operative nausea and vomiting [...] GRAFT 09/17/2018 Surgeon: Leo Bennett MD; Location: [facility] MAIN OR; Service: Spine CARDIAC CATHETERIZATION 2 STENTS COLONOSCOPY CORONARY ANGIOPLASTY WITH STENT PLACEMENT LUMBAR FUSION N/A 09/17/2018 L5 S1 Anterior lumbar interbody fusion with iliac bone graft; Surgeon:Leo Bennett MD; Location: [facility] MAIN OR; Service: Spine Allergy Allergies Allergen [...] most recent cardiovascular imaging studies availabe in [facility] EMR werereviewed at time of consultation Assessment: 1. Chest pain Trop hs-c 14, [address] changes Atypical features 2. Elevated d-dimer CT neg for PE 3. Left leg edema and pain 4. CAD [place] with PCI x's 2 '10 at [facility] in [place], [place] 5. Recent back surgery 09/17/2018 6. [...] pain that he had with his previous [place]. Echo does show mildlyreduced LV systolic function [...] POINT OF CARE CARDIOLOGY Final R esult [facility] OFFICE * (ABNORMAL) LIPID PANEL REFLEX (01/03/2023 11:03 AM EST) Cholesterol 106 <200 mg/dL 01/03/2023 3:35 PM EST [facility] Comment: < 200 Desirable 200 - 239 Borderline High >= 240 High Triglyceride 84 <150 mg/dL 01/03/2023 3:35 PM EST [facility] Score Comment: < 150 Normal 150 - 199 Borderline High 200 - 499 High >= 500 Very High HDL 35(L) >=40 mg/dL 01/03/2023 3:35 PM EST [facility] Score Comment: > 60 Optimal 40 - 60 Acceptable < 40 Low LDL Calculated 54 <100 mg/dL 01/03/2023 3:35 PM EST [facility] Score Non-HDL-C Calculated 71 <=129 mg/dL 01/03/2023 3:35 PM EST [facility] Score Comment: <130 Desirable 130-159 Above Desirable 160-189 Borderline High 190-219 High >= 220 Very High Fasting Specimen? Yes None 023 3:35 PM EST [facility] Blood VENOUS BLOOD / Unknown Venipuncture / Unknown 01/03/2023 11:03 AM EST 01/03/2023 11:03 AM EST us Arnold Veronica MD CHEMISTRY ORDERABLES Final Resul t [facility] [address] [facility], [place] [address] [facility] [address] [place] [address] * CBC (01/03/2023 11:03 AM EST) Only [...] Resu lt [facility] 1 [facility] , [place] [address] * (ABNORMAL) COMPREHENSIVE METABOLIC PANEL (01/03/2023 11:03 [...] mL/min/1.7 3 m2 01/03/2023 3:36 PM EST [facility] Comment:Estimated GFR was ca lculated using the CKD-EPIcr (2020) equation refit without race. The equation is recommended by the National Kidney Foundation - [place] Society of Nephrology Task Force. Blood VENOUS BLOOD / Unknown Venipuncture / Unknown 01/03/2023 11:03 AM EST 01/03/2023 11:03 AM EST us Arnold Veronica MD CHEMISTRY ORDERABLES Final Resul t [facility] [address] [facility] [address], [place] [address] [facility] [address] [place] [address] * (ABNORMAL) CBC WITH DIFF [...] 01/22/2020 7:11 PM EDT [facility] MPV 10.8 8.8 - 12.5 fL 01/22/2020 7:11 PM EDT [facility] Neut Percent 73.7 % 01/22/2020 7:11 PM EDT [facility] Comment:Neutrophils equals s egs plus bands Imm Gran% 0.6 % 01/22/2020 7:11 PM EDT [facility] Comment:Automated count of m etamyelocytes, myelocytes and promyelocytes. Lymph Percent 15.7 % 01/22/2020 7:11 PM EDT [facility] [place] Percent 6.7 % 01/22/2020 7:11 PM EDT [facility] Eos Percent 2.4 % 01/22/2020 7:11 PM EDT [facility] Baso Percent 0.9 % 01/22/2020 7:11 PM EDT [facility] Neut # 10.6(H) 1.6 - 6.1 x10(3)/[facility] 01/22/2020 7:11 PM EDT [facility] Comment:Neutrophils equals s egs plus bands IMMGRAN# 0.1 0.0 - 0.1 x10(3)/[facility] 01/22/2020 7:11 PM EDT [facility] Comment:Automated count of m etamyelocytes, myelocytes and promyelocytes. An absolute IG <0.1 is reported as 0.0. Lymph # 2.3 1.2 - 3.9 x10(3)/[facility] 01/22/2020 7:11 PM EDT [facility] [place] # 1.0(H) 0.3 - 0.9 x10(3)/[facility] 01/22/2020 7:11 PM EDT [facility] Eos# 0.3 0.0 - 0.5 x10(3)/[facility] 01/22/2020 7:11 PM EDT [facility] Baso # 0.1 0.0 - 0.1 x10(3)/[facility] 01/22/2020 7:11 PM EDT [facility] Blood Venipuncture / Unknown 01/22/2020 1:29 PM EDT 01/22/2020 1:29 PM EDT us Lopez Nixon MD HEMATOLOGY ORDERABLES Final Resu lt [facility] 1 [facility] , [place] [address] * (ABNORMAL) LIPID SCREEN (01/22/2020 1:29 PM EDT) Only the most recent of2 resultswithin the time period is included. Pathologist [facility] Cholesterol 97 <200 mg/dL 01/22/2020 7:25 PM EDT [facility] Comment: < 200 Desirable 200 - 239 Borderline High >= 240 High Triglyceride 104 <150 mg/dL 01/22/2020 7:25 PM EDT [facility] Comment: < 150 Normal 150 - 199 Borderline High 200 - 499 High >= 500 Very High HDL 30(L) >=40 mg/dL 01/22/2020 7:25 PM EDT [facility] Comment: > 60 Optimal 40 - 60 Acceptable < 40 Low LDL Calculated 46 <100 mg/dL 01/22/2020 7:25 PM EDT [facility] Comment: < 100 Optimal 100 - 129 Near or above optimal 130 - 159 Borderline High 160 - 189 High >= 190 Very High Non-HDL-C Calculated 67 <=129 mg/dL 01/22/2020 7:25 PM EDT [facility] Comment: <130 Desirable 130-159 Above Desirable 160-189 Borderline High 190-219 High >= 220 Very High Fasting Specimen? Yes None 020 7:25 PM EDT [facility] Blood Venipuncture / Unknown 01/22/2020 1:29 PM EDT 01/22/2020 1:29 PM EDT Lopez Nixon MD CHEMISTRY ORDERABLES Final Resul t Performing Organization Address City/[facility]/ZIP Co de Phone Number [facility] [address] [facility] , [place] [address] * ECG AND WAVEFORMS - TELEMETRY (11/19/2018 6:44 AM EST) Only the most recent of5 resultswithin the time period is included. ECG INTERPRET NSR [facility] INSURANCE PROCESSING CLERK APPROVED Yes [facility] 11/19/2018 6:44 AM EST Narrative [facility] - 11/19/2018 6:52 AM EST DC 0.17 QRS 0.09 QT 0.34 See Clinical Report link for waveform capture us Unknown Provider POINT OF CARE CARDIOLOGY Final Result [facility] [address] [place] [address] * (ABNORMAL) BASIC METABOLIC PANEL (11/19/2018 6:17 [...] ORDERABLES Final Resu lt Performing Organization Address City/[facility] Co de Phone Number [facility] [address] [facility], [place] [address] * CORONARY ANGIOGRAM (COR/LHC/LV GRAM, CARDIAC CATHETERIZATION) (11/18/2018 3:11 PM EST) Only the most recent of2 resultswithin the time period is included. Narrative [facility] - 11/18/2018 3:16 PM EST Mid [...] ORDERABLES Final Re sult Performing Organization Address City/[facility]/ZIP Co de Phone Number [facility] * (ABNORMAL) ACTIVATED CLOTTING TIME LR POC (11/18/2018 2:59 PM EST) ACT-LR 298(H) 89 - 169 second(s) 11/18/2018 3:07 PM EST [facility] Blood BLOOD SPECIMEN / Unknown 11/18/2018 2:59 PM EST 11/18/2018 3:07 PM EST us Amanda Doyle MD POINT OF CARE TEST ORDERABLE S Final Result Performing Organization Address [facility] Co de Phone Number [facility] [address] [place] [address] * FILM TECHNICIAN HEMODYNAMIC WAVEFORMS (11/18/2018 2:22 PM EST) 11/18/2018 2:22 PM EST Lopez Nixon MD CARDIAC CATH ORDERABLES Final Re sult Performing Organization Address City/[facility] Co de Phone Number [facility] [address] [place] [address] * EC ECHOCARDIOGRAM COMPLETE W DOPPLER AND COLOR FLOW MAPPING (11/18/2018 10:19 AM EST) Pathologist [facility] Ejection Fraction 50-55 % [place] Anatomical Region [...] Laterality Modality Other 11/18/2018 9:35 AM EST us Unknown Unknown IMG ECG ORDERABLES [...] contralateral right commonfemoral vein. Charly Romero MD Murtaza Wilder MD IMG VASCULAR ORDERABLES Isidra l Result * (ABNORMAL) TROPONIN-T HIGH SENSITIVITY (11/18/2018 6:33 AM EST) Only the most recent of3 resultswithin the time period is included. xc-cEotistzm-G 33(H) <22 ng/L 11/18/2018 9:00 AM EST [facility] Comment: See the website below for rule out [place] care pathway, conditions other than AMI that can cause elevated hs cTnT, and comparison of values from the 4th and 5th generation Pacheco tests. [email or web address]/[email or web address] Blood VENOUS BLOOD / Unknown Venipuncture / Unknown 11/18/2018 6:33 AM EST 11/18/2018 6:47 AM EST Narrative [facility] - 11/18/2018 9:00 AM EST Ingestion of robina doses of biotin (>5 mg/day) taken within 8 hours of drawing blood sample can interfere with this immunoassay test. us Milly Edwards MD CHEMISTRY ORDERA BLES Final Result Performing Organization Address City/[facility]/ZIP Co de Phone Number [place] [phone] * PARTIAL THROMBOPLASTIN TIME (11/18/2018 6:33 AM EST) PTT 27.6 26.0 - 36.4 second(s) 11/18/2018 7:13 AM EST [facility] Comment: Therapeutic range for unfractionated heparin: 53.0 [...] 6:47 AM EST us Murtaza Wilder MD HEMATOLOGY ORDERABLES Final Result Performing Organization Address [facility] Co de Phone Number [facility] [address] [facility], [place] [address] * PT / INR (11/18/2018 6:33 AM EST) PT 10.5 9.7 - 12.5 second(s) 11/18/2018 7:13 AM EST [facility] INR 0.93 0.86 - 1.10 no units 11/18/2018 7:13 AM EST [facility] Comment: Level of Therapy Indications Target INR Range Standard Dose Treatment and prophylaxis of venous 2.0 - 3.0 thrombosis, pulmonary embolism High Dose High risk patients with mechanical 2.5 - 3.5 heart valves Blood VENOUS BLOOD / Unknown Venipuncture / Unknown 11/18/2018 6:33 AM EST 11/18/2018 6:47 AM EST Murtaza Wilder MD HEMATOLOGY ORDERABLES Final Result Performing Organization Address City/[facility]/ZIP Co de Phone Number [facility] 1 [facility] , [place] [address] * MAGNESIUM LEVEL (11/18/2018 6:33 AM EST) Magnesium 2.0 1.6 - 2.4 mg/dL 11/18/2018 8:00 AM EST [facility] Blood VENOUS BLOOD / Unknown Venipuncture / Unknown 11/18/2018 6:33 AM EST 11/18/2018 6:47 AM EST Murtaza Wilder MD CHEMISTRY ORDERABLES Final R esult Performing Organization Address [facility] Co de Phone Number [employer] [address] [facility] , [place] [address] * CT ANGIOGRAM PULMONARY W CONTRAST (11/17/2018 [...] or other acute process. Milly Edwards MD IMG CT ORDERABLE S Final Result * XR [...] Mild left basilar atelectasis Milly Edwards MD IMG DIAGNOSTIC I MAGING ORDERABLES Final Result * (ABNORMAL) D-DIMER (11/17/2018 10:25 PM EST) D-Dimer 278(H) <=230 ng/mL D-DU 11/17/2018 10:47 PM EST [employer] Comment: This test has been clinically validated by the surgery scheduler and approved by the FDA for exclusion [...] 10:25 PM EST 11/17/2018 10:34 PM EST us Milly Edwards MD HEMATOLOGY ORDER EMILIA Final Result Performing Organization Address [facility] Co de Phone Number [employer] [address] [facility], [place] [address] * NT PROBNP (11/17/2018 10:25 PM EST) NT Pro-BNP 217 <=319 pg/mL 11/17/2018 11:03 PM EST [facility] Blood VENOUS BLOOD / Unknown Venipuncture / Unknown 11/17/2018 10:25 PM EST 11/17/2018 10:33 PM EST Narrative [facility] - 11/17/2018 11:03 PM EST An NT pro-BNP level less than 300 pg/mL in any patient, regardless of age, effectively rules out acute CHF with a 99% negative predictive value. Milly Edwards MD CHEMISTRY ORDERA BLES Final Result Performing Organization Address [facility]/ZIP Co de Phone Number [facility] [address] [place] [address] * EK EKG 12 LEAD (11/17/2018 9:46 PM EST) Anatomical Region Laterality Modality Electrocardiogra phy 11/17/2018 9:49 PM EST Impressions 11/17/2018 10:05 PM EST Stationary ECG Study [place] Interpretive Statements SINUS RHYTHM MARKED LEFT AXIS DEVIATION PATTERN CONSISTENT WITH PULMONARY DISEASE MODERATE INTRAVENTRICULAR CONDUCTION DELAY Electronically Signed On 11-17-2018 22:05:03 EST by Daniel Allen MD Narrative Procedure Note Daniel Allen MD - 11/17/2018 IMPRESSION Stationary ECG Study [place] Interpretive Statements SINUS RHYTHM MARKED LEFT AXIS [...] AIRWAY PLACEMENT (09/17/2018 7:45 AM EST) Narrative [facility] - 09/17/2018 7:45 AM EST Miguel Richards Jr. TRAINING SPECIALIST 09/17/2018 7:46 AM Intraop Airway Placement: Date/Time: [...] Unchanged and Atraumatic Insertion attempts: 1 Title: TRAINING SPECIALIST Procedure Note Miguel Richards Jr., TRAINING SPECIALIST - 09/17/2018 7:45 AM EST Intraop Airway [...] Unchanged and Atraumatic Insertion attempts: 1 Title: TRAINING SPECIALIST Kostas Verdugo DO DC ANESTHESIA Final Result Performing Organization Address [facility] Co de Phone Number [facility] [address] [place] [address] * BB HISTORY CHECK (09/10/2018 10:02 AM EST) Pathologist [facility] BB HISTORY CHECK (1) No Previous History 09/10/2018 10:55 AM EST [facility] Blood VENOUS BLOOD / Unknown Venipuncture / Unknown 09/10/2018 10:02 AM EST 09/10/2018 10:07 AM EST Leo Bennett MD BLOOD BANK ORDERABLES Final Result Performing Organization Address [facility] de Phone Number [facility] [address] [place] [address] * SURGERY DATE (09/10/2018 10:02 AM EST) Pathologist [facility] Surgery Date (1) Complete 09/10/2018 10:58 AM EST [facility] Blood VENOUS BLOOD / Unknown Venipuncture / Unknown 09/10/2018 10:02 AM EST 09/10/2018 10:07 AM EST Leo Bennett MD BLOOD BANK ORDERABLES Final Result Performing Organization Address [facility] de Phone Number [facility] [address] [place] [address] * STAPHYLOCOCCUS AUREUS SCREEN (09/10/2018 10:02 AM EST) Pathologist [facility] Staph aureus PCR Not Detected Not Detected 09/10/2018 1:00 PM EST [facility] MRSA PCR Not Detected Not Detected 09/10/2018 1:00 PM EST [facility] Swab BOTH ANTERIOR NARES / Unknown 09/10/2018 10:02 AM EST 09/10/2018 10:07 AM EST Narrative [employer] - 09/10/2018 1:00 PM EST Staphylococcus aureus target DNA sequence is not detected. This qualitative assay is intended for the detection of Staphylococcus aureus proprietary sequences for the staphylococcal protein A (spa) gene, the gene for methicillin resistance (mecA), and the staphylococcal cassette chromosome mec (SCCmec) inserted into the SA chromosomal attB site. This assay utilizes real time PCR on the [employer] GeneXpert Infinity, and its performance has been verified by the [facility]. A negative result does not rule [...] has been developed and validated by the [facility] laboratory. Detailed methodology is available upon request. Leo Bennett MD MICROBIOLOGY - GENERAL ORDER EMILIA Final Result Performing Organization Address [facility] de Phone Number [employer] [address] [place] [address] [place] [address] * VITAMIN D 25 HYDROXY (09/10/2018 10:02 AM EST) Vit D 25 OH 37.1 30.0 - 120.0 ng/mL 09/10/2018 2:13 PM EST [employer] Comment: INTERPRETIVE INFORMATION: Vitamin D, 25-Hydroxy <20 [...] ORDERABLES Final R esult Performing Organization Address [facility] Co de Phone Number [employer] [address] [place] [address] , [address] [place], [place] [id number] * ABORH (09/10/2018 10:02 AM EST) ABORH Int O POS 09/10/2018 11:42 AM EST [facility] Blood VENOUS BLOOD / Unknown Venipuncture / Unknown 09/10/2018 10:02 AM EST 09/10/2018 10:07 AM EST Leo Bennett MD BLOOD BANK ORDERABLES Final Result [facility] [address] [place] [address] * ANTIBODY SCREEN IGG (09/10/2018 10:02 AM EST) ABSC IgG Int Negative 09/10/2018 11:42 AM EST [facility] Blood VENOUS BLOOD / Unknown Venipuncture / Unknown 09/10/2018 10:02 AM EST 09/10/2018 10:07 AM EST Leo Bennett MD BLOOD BANK ORDERABLES Final Result [facility] [address] [place] [address] Visit Diagnoses Diagnosis Start Date Pre-op testing [...] leg swelling 11/17/2018 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 11/17/2018 Hx of myocardial infarction Old myocardial infarction 11/17/2018 Non-STEMI (non-ST elevated myocardial infarction) (HCC) Acute myocardial infarction, subendocardial infarction, episode of care unspecified 12/18/2018 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, angina presence unspecified 12/18/2018 Non-STEMI (non-ST elevated myocardial infarction) (HCC) Acute myocardial infarction, subendocardial infarction, episode of care unspecified 02/19/2019 Essential hypertension Unspecified essential hypertension 02/19/2019 Ischemic heart disease Chronic ischemic heart disease, unspecified 09/17/2019 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, angina presence unspecified 09/17/2019 Essential hypertension [...] myocardial infarction 2020 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, angina presence unspecified 2020 Essential hypertension Unspecified essential hypertension 2020 Ischemic heart disease Chronic ischemic heart disease, unspecified 01/12/2021 Essential hypertension Unspecified essential hypertension 01/12/2021 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, angina presence unspecified 01/12/2021 Ischemic heart [...] essential hypertension 11/29/2022 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 11/29/2022 Essential hypertension Unspecified essential hypertension 01/03/2023 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 01/03/2023 Ex-smoker for less than 1 year 01/25/2023 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 01/25/2023 Essential hypertension Unspecified essential hypertension 01/25/2023 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 08/02/2023 Essential hypertension Unspecified essential hypertension 08/02/2023 Ischemic heart disease Chronic ischemic heart disease, unspecified 02/21/2024 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 02/21/2024 Essential hypertension Unspecified essential hypertension 02/21/2024 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 05/22/2024 Essential hypertension Unspecified essential hypertension 05/22/2024 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 12/04/2024 Essential hypertension Unspecified essential hypertension 12/04/2024 Tobacco abuse Tobacco use disorder 12/04/2024 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 06/16/2025 Essential hypertension Unspecified essential hypertension 06/16/2025 DDD (degenerative disc disease), lumbar Degeneration of lumbar or lumbosacral intervertebral disc 09/17/2018 Foraminal stenosis of lumbar region Spinal stenosis, lumbar region, without neurogenic claudication 09/17/2018 Chest pain Chest pain, unspecified 11/17/2018 Left leg swelling 11/17/2018 CAD (coronary artery disease), upper [place] coronary artery Coronary atherosclerosis of upper [place] coronary artery 11/17/2018 Ex-smoker for less than 1 year 11/17/2018 Non-STEMI (non-ST elevated myocardial infarction) (HCC) Acute myocardial infarction, subendocardial infarction, episode of care unspecified 11/17/2018 Care Teams [employer] Relationship Specialty Start Date End Date Arnold Veronica MD [address] [facility] [place] [address] Internal Medicine-Cardiovascular Disease 01/25/23
== END 2025-07-13 23:59 ==
LOC: LAB.DROPOF 07-14 10:44
PROVIDERS: PCP Family Medicine; Visit Provider Family Medicine
DX: I10 Essential (primary) hypertension (principal); Z12.5 Encounter for screening for malignant neoplasm of prostate; R73.09 Other abnormal glucose
CPT/HCPCS: 80053; 83036; 85025; G0103